=== PATIENT | female | born 1940 | race Caucasian/White ===

== ENCOUNTER 2017-01-02 12:44 | Emergency (ER) | payer MEDICARE, OTHER ==
[~2017-01-02] VITALS: Ht 160 cm; Wt 59.0 kg
[~2017-01-02 12:44] MED LIST: CALC-507 PO; CALC0.25 PO; CLOP75TA PO; DONE10TA34 PO; LISI-334 PO; MULT1TAB52 PO; MULT1TAB6 PO; OXYC5TAB PO; PANT40TA5 PO; PARO10TA2 PO; QUET25TA5 PO; SIMV20TA3 PO; [UNRECOGNIZED DRUG - CODE]
--- NOTE | 2017-01-02 13:24 | PHYS DOC ---
Past Medical History Past Medical History: Arthritis, Cancer, Dementia, Depression, GERD, Hypertension, TIA, Other Additional Past Medical Histor: TIA's(balance problems since), multiple falls - joint and bone pain, Lung C Past Surgical History: Appendectomy, Cholecystectomy, Hysterectomy, Other Additional Past Surgical Histo: shoulder, Brain tumor Alcohol Use: None Drug Use: None Adult General Chief Complaint Chief Complaint: BACK PAIN - NO INJURY HPI HPI 76-year-old female who had an episode of low back pain and vomiting that was noted this morning. EMS upon arrival states the patient had no pain and was not actively vomiting. Currently the patient denies any significant complaints. She states her symptoms have fully resolved. She denies any recent illnesses. She denies any chest pain for his breath. She denies any abdominal pain. Patient is fully alert and oriented and at her stated baseline per her at bedside. She appears in no acute distress. Pt at bedside does states she's had some mild bleeding with her stool but has significant rectal plain and she states she had a bowel movement earlier today that had hard stool but denied any blood. Review of Systems Review of Systems Constitutional: Denies fever or chills [] Eyes: Denies change in visual acuity, redness, or eye pain [] HENT: Denies nasal congestion or sore throat [] Respiratory: Denies cough or shortness of breath [] Cardiovascular: No additional information not addressed in HPI [] GI: Denies abdominal pain, nausea, vomiting, bloody stools or diarrhea [] : Denies dysuria or hematuria [] Musculoskeletal: Denies back pain or joint pain [] Integument: Denies rash or skin lesions [] Neurologic: Denies headache, focal weakness or sensory changes [] Endocrine: Denies polyuria or polydipsia [] Allergies Allergies Allergies Coded Allergies Type Severity Reaction Last Updated Verified No Known Drug Allergies 07/20/14 No Physical Exam Physical Exam Constitutional: Well developed, well nourished, no acute distress, non-toxic appearance. [] HENT: Normocephalic, atraumatic, bilateral external ears normal, oropharynx moist, no oral exudates, nose normal. [] Eyes: PERRLA, EOMI, conjunctiva normal, no discharge. [] Neck: Normal range of motion, no tenderness, supple, no stridor. [] Cardiovascular:Heart rate regular rhythm, no murmur [] Lungs & Thorax: Bilateral breath sounds clear to auscultation [] Abdomen: Bowel sounds normal, soft, no tenderness, no masses, no pulsatile masses. [] Skin: Warm, dry, no erythema, no rash. [] Back: No tenderness, no CVA tenderness. [] Extremities: No tenderness, no cyanosis, no clubbing, ROM intact, no edema. [] Neurologic: Alert and oriented X 3, normal motor function, normal sensory function, no focal deficits noted. [] Psychologic: Affect normal, judgement normal, mood normal. [] Current Patient Data Vital Signs Vital Signs Date Time Temp Pulse Resp B/P Pulse Ox O2 Delivery O2 Flow Rate FiO2 01/02/17 16:00 98.0 80 20 159/74 98 98.0 01/02/17 13:05 Room Air Lab Values Laboratory Tests Test 01/02/17 13:00 01/02/17 13:25 White Blood Count 12.4x10^3/uL (4.0-11.0) H Red Blood Count 5.03x10^6/uL (3.50-5.40) Hemoglobin 12.8g/dL (12.0-15.5) Hematocrit 40.6% (36.0-47.0) Mean Corpuscular Volume 81fL (79-100) Mean Corpuscular Hemoglobin 26pg (25-35) Mean Corpuscular Hemoglobin Concent 32g/dL (31-37) Red Cell Distribution Width 15.5% (11.5-14.5) H Platelet Count 316x10^3/uL (140-400) Neutrophils (%) (Auto) 83% (31-73) H Lymphocytes (%) (Auto) 10% (24-48) L Monocytes (%) (Auto) 5% (0-9) Eosinophils (%) (Auto) 2% (0-3) Basophils (%) (Auto) 1% (0-3) Neutrophils # (Auto) 10.3x10^3uL (1.8-7.7) H Lymphocytes # (Auto) 1.2x10^3/uL (1.0-4.8) Monocytes # (Auto) 0.6x10^3/uL (0.0-1.1) Eosinophils # (Auto) 0.2x10^3/uL (0.0-0.7) Basophils # (Auto) 0.1x10^3/uL (0.0-0.2) Sodium Level 146mmol/L (136-145) H Potassium Level 3.9mmol/L (3.5-5.1) Chloride Level 108mmol/L (98-107) H Carbon Dioxide Level 28mmol/L (21-32) Anion Gap 10 (6-14) Blood Urea Nitrogen 26mg/dL (7-20) H Creatinine 0.8mg/dL (0.6-1.0) Estimated GFR (Cockcroft-Gault) 69.4 Glucose Level 109mg/dL (70-99) H Calcium Level 9.3mg/dL (8.5-10.1) Troponin I Quantitative < 0.017ng/mL (0.000-0.055) Lipase 292U/L (73-393) Urine Collection Type U cath Urine Color Yellow Urine Clarity Cloudy Urine pH 6.0 Urine Specific [place] 1.020 Urine Protein Negativemg/dL (NEG-TRACE) Urine Glucose (UA) Negativemg/dL (NEG) Urine Ketones (Stick) Negativemg/dL (NEG) Urine Blood Trace (NEG) Urine Nitrite Positive (NEG) Urine Bilirubin Negative (NEG) Urine Urobilinogen Dipstick 0.2mg/dL (0.2 mg/dL) Urine Leukocyte Esterase Large (NEG) Urine RBC Occ/HPF (0-2) Urine WBC >40/HPF (0-4) Urine Squamous Epithelial Cells Few/LPF Urine Bacteria Many/HPF (0-FEW) Urine Mucus Mod/LPF Laboratory Tests 01/02/17 13:00 Laboratory Tests 01/02/17 13:00 EKG EKG EKG as interpreted by me reveals a sinus rhythm of 77 bpm with no obvious signs of ischemia seen. Radiology/Procedures Radiology/Procedures CT of the abdomen pelvis without contrast demonstrates the following: Indication abdominal pain. Axial images through the abdomen and pelvis were obtained. Imaging is limited. No IV or gastrointestinal contrast was administered. Additionally the patient was unable to remove the arms out of the [id number]. Note is made of a previous examination 08/15/2016. There are some chronic pleural-parenchymal changes at the lung bases. Operative intervention associated with both hips is noted. A mass or definite abnormality is not seen associated with the liver or spleen. No pancreatic abnormality is seen. The left kidney is slightly small. There is a small right renal calculus. An acute finding is not seen associated with the kidneys. The adrenal glands appear normal. There is some mild dilatation of the abdominal aorta. Maximum AP dimension is under, however, 2.5 cm. Acute finding in the abdomen is not seen. No mass or acute finding is apparent in the pelvis. Degenerative changes are noted in the lumbar spine. There is probable bony demineralization. One view of the chest as interpreted by me did not reveal an acute cardiopulmonary process. Course & Med Decision Making Course & Med Decision Making Pertinent Labs and Imaging studies reviewed. (See chart for details) This 76-year-old female with an episode of low back pain has fully resolved will obtain lab work and a CT noncontrasted of her abdomen and pelvis. Patient is in no acute distress at this time. EKG and chest x-ray are unremarkable. The patient's laboratory workup was unremarkable except for evidence of an ongoing urinary tract infection. Her imaging was negative for any acute abnormality. Patient was observed in the department for several hours and had no return of her symptoms. I'll be discharging of a course of antibiotics for her urinary tract infection and she'll follow closely with her family physician next several days for symptom resolution. Dragon Disclaimer Dragon Disclaimer This electronic medical record was generated, in whole or in part, using a voice recognition dictation system. Departure Departure Impression: Primary Impression: Urinary tract infection Disposition: HOME, SELF-CARE Admitting Physician: Other Condition: STABLE Referrals: CRYSTAL PRITCHARD MD (PCP) Patient Instructions: Urinary Tract Infection, [id number] Additional Instructions: Please take your medications as prescribed. Follow up with your primary care doctor in the next 2-3 days for your urinary symptoms. Return to the ER if you develop any worsening of your symptoms. Scripts Nitrofurantoin Monohyd/M-Cryst (Macrobid 100 Mg Capsule)100 Mg Capsule1 Cap PO BID #10 CAP Prov:ANGELIQUE WESLEY DO 01/02/17 ANGELIQUE WESLEY DO Jan 02, 2017 13:24
[2017-01-02 13:35] LABS: BASO # 0.1 x10^3/uL (0.0-0.2); BASO % 1 % (0-3); EOS % 2 % (0-3); HEMATOCRIT 40.6 % (36.0-47.0); HEMOGLOBIN 12.8 g/dL (12.0-15.5); LYMPH # 1.2 x10^3/uL (1.0-4.8); LYMPH % 10 % (24-48); MEAN CORPUSCULAR HEMOGLOBIN 26 pg (25-35); MEAN CORPUSCULAR HGB CONC 32 g/dL (31-37); MEAN CORPUSCULAR VOLUME 81 fL (79-100); MONO % 5 % (0-9); NEUT % 83 % (31-73); PLATELET COUNT 316 x10^3/uL (140-400); RED BLOOD COUNT 5.03 x10^6/uL (3.50-5.40); RED CELL DISTRIBUTION WIDTH 15.5 % (11.5-14.5); WHITE BLOOD COUNT 12.4 x10^3/uL (4.0-11.0)
[2017-01-02 13:39] LABS: CALCIUM 9.3 mg/dL (8.5-10.1); CREATININE 0.8 mg/dL (0.6-1.0); GFR 69.4; POTASSIUM 3.9 mmol/L (3.5-5.1)
[2017-01-02 13:52] LABS: BILIRUBIN,URINE NEGATIVE (NEG); GLUCOSE,URINE NEGATIVE (NEG); NITRITE,URINE POSITIVE (NEG); PROTEIN,URINE NEGATIVE (NEG-TRACE); UROBILINOGEN,URINE 0.2 mg/dL (0.2 mg/dL)
[2017-01-02 13:59] LABS: BACTERIA,URINE MANY /HPF (0-FEW); RBC,URINE OCC /HPF (0-2); SQUAMOUS EPITHELIAL CELL,UR FEW /LPF; WBC,URINE >40 /HPF (0-4)
--- NOTE | 2017-01-02 14:18 | RAD ---
Indication chronic cough. A single view of the chest was obtained. Comparison is made to an examination 08/15/2016. Heart and pulmonary vessels are unchanged. There is no focal infiltrate. Chronic findings are seen associated with the right and left humerus. Kyphoplasty changes are noted in the mid thoracic spine. A significant change in the chest is not seen. IMPRESSION: No acute or focal process. No significant change
--- NOTE | 2017-01-02 15:20 | RAD ---
Indication abdominal pain. Axial images through the abdomen and pelvis were obtained. Imaging is limited. No IV or gastrointestinal contrast was administered. Additionally the patient was unable to remove the arms out of the [id number]. Note is made of a previous examination 08/15/2016. There are some chronic pleural-parenchymal changes at the lung bases. Operative intervention associated with both hips is noted. A mass or definite abnormality is not seen associated with the liver or spleen. No pancreatic abnormality is seen. The left kidney is slightly small. There is a small right renal calculus. An acute finding is not seen associated with the kidneys. The adrenal glands appear normal. There is some mild dilatation of the abdominal aorta. Maximum AP dimension is under, however, 2.5 cm. Acute finding in the abdomen is not seen. No mass or acute finding is apparent in the pelvis. Degenerative changes are noted in the lumbar spine. There is probable bony demineralization. IMPRESSION: No acute finding seen in the abdomen or pelvis PQRS Compliance Statement: One or more of the following individualized dose reduction techniques were utilized for this examination: 1. Automated exposure control 2. Adjustment of the mA and/or kV according to patient size 3. Use of iterative reconstruction technique
[2017-01-02] MEDS ORDERED: NITR100C62 PO (15:39)
[2017-01-02 16:00] VITALS: BP 159/74
--- NOTE | 2017-01-03 06:43 | EKG ---
[facility] [address] [place] [address] Test Date: 2017-01-02 Test Time: 13:26:17 Pat Name: YIFAN DOMINIQUE Department: Room: Gender: F [employer] Overseer: : 1940 Requested By: ANGELIQUE WESLEY Order Number: [id number] Reading MD: Measurements Intervals [place] Rate: 77 P: 22 AL: 170 QRS: -24 QRSD: 70 T: -9 QT: 410 QTc: 466 Interpretive Statements SINUS RHYTHM LEFTWARD AXIS R-S TRANSITION ZONE IN V LEADS DISPLACED TO THE LEFT QRS(T) CONTOUR ABNORMALITY CONSIDER ANTEROSEPTAL MYOCARDIAL DAMAGE RI6.01 Unconfirmed report No previous ECG available for comparison
== END 2017-01-02 16:21 | disposition home or self-care (01) ==
LOC: ER 12:44
DX: N39.0 Urinary tract infection, site not specified (principal); F03.90 Unspecified dementia, unspecified severity, without behavioral disturbance, psychotic disturbance, mood disturbance, and anxiety; I10 Essential (primary) hypertension; K21.9 Gastro-esophageal reflux disease without esophagitis; M19.90 Unspecified osteoarthritis, unspecified site; Z86.73 Personal history of transient ischemic attack (TIA), and cerebral infarction without residual deficits; Z90.49 Acquired absence of other specified parts of digestive tract; Z90.710 Acquired absence of both cervix and uterus
CPT/HCPCS: 36415; 71010; 74176; 80048; 81001; 83690; 84484; 85027; 87086; 93005; 99285-25

== ENCOUNTER 2017-01-26 16:32 | Inpatient (IN) | payer MEDICARE ==
[~2017-01-26] VITALS: Ht 157.5 cm; Wt 54.2 kg
[~2017-01-26 16:32] MED LIST changes: +NITR100C62 PO; -PARO10TA2 PO; +PARO10TA3 PO
[2017-01-26 17:44] LABS: BASO % 0 % (0-3); EOS % 0 % (0-3); HEMATOCRIT 46.6 % (36.0-47.0); HEMOGLOBIN 15.2 g/dL (12.0-15.5); LYMPH # 0.3 x10^3/uL (1.0-4.8); LYMPH % 3 % (24-48); MEAN CORPUSCULAR HEMOGLOBIN 26 pg (25-35); MEAN CORPUSCULAR HGB CONC 33 g/dL (31-37); MEAN CORPUSCULAR VOLUME 80 fL (79-100); MONO % 8 % (0-9); NEUT % 88 % (31-73); PLATELET COUNT 275 x10^3/uL (140-400); WHITE BLOOD COUNT 8.4 x10^3/uL (4.0-11.0)
[2017-01-26 17:45] LABS: BILIRUBIN,URINE SMALL (NEG); GLUCOSE,URINE NEGATIVE (NEG); NITRITE,URINE NEGATIVE (NEG); PROTEIN,URINE NEGATIVE (NEG-TRACE)
[2017-01-26 17:55] LABS: BACTERIA,URINE 0 /HPF (0-FEW); SQUAMOUS EPITHELIAL CELL,UR FEW /LPF; WBC,URINE OCC /HPF (0-4)
[2017-01-26 18:07] LABS: CALCIUM 9.2 mg/dL (8.5-10.1); CREATININE 0.9 mg/dL (0.6-1.0); GFR 60.6; POTASSIUM 4.4 mmol/L (3.5-5.1)
[2017-01-26 18:10] LABS: ALBUMIN 3.8 g/dL (3.4-5.0); ALBUMIN/GLOBULIN RATIO 0.9 (1.0-1.7); TOTAL BILIRUBIN 0.5 mg/dL (0.2-1.0); TOTAL PROTEIN 8.2 g/dL (6.4-8.2)
[2017-01-26 18:15] LABS: PLT ESTIMATE ADEQUATE (ADEQUATE)
--- NOTE | 2017-01-26 18:33 | PHYS DOC ---
Past Medical History Past Medical History: Arthritis, Cancer, Dementia, Depression, GERD, Hypertension, TIA, Other Additional Past Medical Histor: TIA's(balance problems since), multiple falls - joint and bone pain, Lung C Past Surgical History: Appendectomy, Cholecystectomy, Hysterectomy, Other Additional Past Surgical Histo: shoulder, Brain tumor Alcohol Use: None Drug Use: None Adult General Chief Complaint Chief Complaint: ALTERED MENTAL STATUS HPI HPI 76-year-old female with multiple medical problems including dementia presents with her secondary to altered mental status today. Apparently, she recently was seen in for the same type of issue and had a urinary tract infection. According to the patient has had no complaints of headache and no obvious lateralizing neurologic findings. states that on arrival to the emergency department she seems to have come back to normal. [] Review of Systems Review of Systems Review of systems is unobtainable secondary to dementia Allergies Allergies Allergies Coded Allergies Type Severity Reaction Last Updated Verified No Known Drug Allergies 07/20/14 No Physical Exam Physical Exam Constitutional: Well developed, well nourished, no acute distress, non-toxic appearance. [] HENT: Normocephalic, atraumatic, bilateral external ears normal, oropharynx moist, no oral exudates, nose normal. [] Eyes: PERRLA, EOMI, conjunctiva normal, no discharge. [] Neck: Normal range of motion, no tenderness, supple, no stridor. [] Cardiovascular:Heart rate regular rhythm, no murmur [] Lungs & Thorax: Bilateral breath sounds clear to auscultation [] Abdomen: Bowel sounds normal, soft, no tenderness, no masses, no pulsatile masses. [] Skin: Warm, dry, no erythema, no rash. [] Back: No tenderness, no CVA tenderness. [] Extremities: No tenderness, no cyanosis, no clubbing, ROM intact, no edema. [] Neurologic: Alert and oriented X 3, normal motor function, normal sensory function, no focal deficits noted. [] Psychologic: Unable to assess secondary to dementia [] Current Patient Data Vital Signs Vital Signs Date Time Temp Pulse Resp B/P Pulse Ox O2 Delivery O2 Flow Rate FiO2 01/26/17 16:39 98.7 78 20 180/70 98 Room Air 98.7 Lab Values Laboratory Tests Test 01/26/17 17:15 01/26/17 17:30 Urine Collection Type Unknown Urine Color Yellow Urine Clarity Clear Urine pH 6.0 Urine Specific [place] 1.020 Urine Protein Negativemg/dL (NEG-TRACE) Urine Glucose (UA) Negativemg/dL (NEG) Urine Ketones (Stick) 40mg/dL (NEG) Urine Blood Small (NEG) Urine Nitrite Negative (NEG) Urine Bilirubin Small (NEG) Urine Urobilinogen Dipstick 1.0mg/dL (0.2 mg/dL) Urine Leukocyte Esterase Negative (NEG) Urine RBC 1-2/HPF (0-2) Urine WBC Occ/HPF (0-4) Urine Squamous Epithelial Cells Few/LPF Urine Bacteria 0/HPF (0-FEW) Urine Mucus Mod/LPF White Blood Count 8.4x10^3/uL (4.0-11.0) Red Blood Count 5.80x10^6/uL (3.50-5.40) H Hemoglobin 15.2g/dL (12.0-15.5) Hematocrit 46.6% (36.0-47.0) Mean Corpuscular Volume 80fL (79-100) Mean Corpuscular Hemoglobin 26pg (25-35) Mean Corpuscular Hemoglobin Concent 33g/dL (31-37) Red Cell Distribution Width 15.0% (11.5-14.5) H Platelet Count 275x10^3/uL (140-400) Neutrophils (%) (Auto) 88% (31-73) H Lymphocytes (%) (Auto) 3% (24-48) L Monocytes (%) (Auto) 8% (0-9) Eosinophils (%) (Auto) 0% (0-3) Basophils (%) (Auto) 0% (0-3) Neutrophils # (Auto) 7.5x10^3uL (1.8-7.7) Lymphocytes # (Auto) 0.3x10^3/uL (1.0-4.8) L Monocytes # (Auto) 0.7x10^3/uL (0.0-1.1) Eosinophils # (Auto) 0.0x10^3/uL (0.0-0.7) Basophils # (Auto) 0.0x10^3/uL (0.0-0.2) Segmented Neutrophils % 91% (35-66) H Band Neutrophils % 4% (0-9) Lymphocytes % 2% (24-48) L Monocytes % 3% (0-10) Platelet Estimate Adequate (ADEQUATE) Sodium Level 143mmol/L (136-145) Potassium Level 4.4mmol/L (3.5-5.1) Chloride Level 107mmol/L (98-107) Carbon Dioxide Level 21mmol/L (21-32) Anion Gap 15 (6-14) H Blood Urea Nitrogen 17mg/dL (7-20) Creatinine 0.9mg/dL (0.6-1.0) Estimated GFR (Cockcroft-Gault) 60.6 BUN/Creatinine Ratio 19 (6-20) Glucose Level 113mg/dL (70-99) H Calcium Level 9.2mg/dL (8.5-10.1) Total Bilirubin 0.5mg/dL (0.2-1.0) Aspartate Amino Transferase (AST) 35U/L (15-37) Alanine Aminotransferase (ALT) 46U/L (14-59) Alkaline Phosphatase 103U/L (46-116) Troponin I Quantitative < 0.017ng/mL (0.000-0.055) Total Protein 8.2g/dL (6.4-8.2) Albumin 3.8g/dL (3.4-5.0) Albumin/Globulin Ratio 0.9 (1.0-1.7) L Laboratory Tests 01/26/17 17:30 Laboratory Tests 01/26/17 17:30 EKG EKG [] Radiology/Procedures Radiology/Procedures [] Course & Med Decision Making Course & Med Decision Making Pertinent Labs and Imaging studies reviewed. (See chart for details) [ED course: Evaluation reveals a 76-year-old demented female in no significant distress. According to she is return to an maintained baseline mental status since she's arrived here. Her urine does not appear abnormal. At this point I think is safe for her to go home.] Dragon Disclaimer Dragon Disclaimer This electronic medical record was generated, in whole or in part, using a voice recognition dictation system. Departure Departure Impression: Primary Impression: Altered mental status Disposition: HOME, SELF-CARE Condition: STABLE Referrals: CRYSTAL PRITCHARD MD (PCP) Patient Instructions: Altered Mental Status Additional Instructions: Follow with your family doctor this week for recheck. Return to the MRSA part with any new or concerning symptoms Problem Qualifiers Primary Impression: Altered mental status Altered mental status type: unspecified Qualified Code: R41.82 - Altered mental status, unspecified DEANDRE SHI DO Jan 26, 2017 18:33
[2017-01-26] MEDS ORDERED: ONDANSETRON PF 4 MG/2 ML VIAL. IV PRN ×2 (19:00→19:30)
[2017-01-26] MEDS: IV NORMAL SALINE 1000ML BAG 1,000 ML IV SCH ×2 (19:00→20:20)
--- NOTE | 2017-01-26 19:27 | PDOC1 ---
History and Physical Past Medical History Past Medical History PAST MEDICAL HISTORY Cardiovascular: CAD (with high risk PCI/DEBORAH to left main and LAD; BMS to RCA using Impella device on 07/25/2014), HTN, MO (NSEI - 07/2014), Hyperlipidemia Pulmonary: No pertinent hx CENTRAL NERVOUS SYSTEM: TIA (multiple), Other (brain tumor with previous craniotomy) GI: GERD Heme/Onc: No pertinent hx Hepatobiliary: No pertinent hx Psych: Depression Musculoskeletal: Osteoarthritis Rheumatologic: No pertinent hx Infectious disease: No pertinent hx ENT: No pertinent hx Renal/: No pertinent hx Endocrine: No pertinent hx Dermatology: No pertinent hx PAST SURGICAL HISTORY Past Surgical History: Appendectomy, Other (craniotomy) FAMILY HISTORY Family History: Family History Unknown SOCIAL HISTORY ALCOHOL: rare Drugs: None Lives: with Family Cardiovascular: CAD, HTN, MO, Hyperlipidemia Pulmonary: No pertinent hx CENTRAL NERVOUS SYSTEM: TIA, Other GI: GERD Heme/Onc: No pertinent hx Hepatobiliary: No pertinent hx Psych: Depression Rheumatologic: No pertinent hx Infectious disease: No pertinent hx Renal/: No pertinent hx Endocrine: No pertinent hx Past Surgical History Past Surgical History: Appendectomy, Other Family History Family History: Family History Unknown Social History ALCOHOL: rare Drugs: None Current Problem List Problem List Problems Medical Problems: (1) Altered mental status Status: Acute Current Medications Current Medications Current Medications Medications (Trade) Dose Ordered Sig/Jose Start Time Stop Time Status Last Admin Dose Admin Ondansetron HCl 4 mg 4 mg PRN Q8HRS PRN 01/26/17 19:00 01/27/17 18:59 Sodium Chloride (Iv Sodium Chloride 0.9% 1000ml Bag) 1,000 ml @ 75 mls/hr [id number] 01/26/17 19:30 Allergies Allergies Allergies Coded Allergies Type Severity Reaction Last Updated Verified No Known Drug Allergies 07/20/14 No ROS Review of System NOT ABLE TO OBTAIN DUE TO ACUITY OF HER CONDITION Physical Exam Physical Exam GEN.: apparent distress. Alert, Severely dehydrated. thin built HEENT: Head is normocephalic, atraumatic NECK: Supple. LUNGS: Clear to auscultation. normal airflow HEART: RRR, S1, S2 present. Peripheral pulses intact ABDOMEN: Soft, nontender. Positive bowel sounds. EXTREMITIES: Without any cyanosis. NEUROLOGIC: alert, but not answering questions, worsening baseline status per PSYCHIATRIC: Vitals Vitals Vital Signs Date Time Temp Pulse Resp B/P Pulse Ox O2 Delivery O2 Flow Rate FiO2 01/26/17 18:03 90 18 143/87 97 01/26/17 16:39 98.7 Room Air 98.7 Labs Labs Laboratory Tests Test 01/26/17 17:15 01/26/17 17:30 Urine Collection Type Unknown Urine Color Yellow Urine Clarity Clear Urine pH 6.0 Urine Specific [place] 1.020 Urine Protein Negativemg/dL (NEG-TRACE) Urine Glucose (UA) Negativemg/dL (NEG) Urine Ketones (Stick) 40mg/dL (NEG) Urine Blood Small (NEG) Urine Nitrite Negative (NEG) Urine Bilirubin Small (NEG) Urine Urobilinogen Dipstick 1.0mg/dL (0.2 mg/dL) Urine Leukocyte Esterase Negative (NEG) Urine RBC 1-2/HPF (0-2) Urine WBC Occ/HPF (0-4) Urine Squamous Epithelial Cells Few/LPF Urine Bacteria 0/HPF (0-FEW) Urine Mucus Mod/LPF White Blood Count 8.4x10^3/uL (4.0-11.0) Red Blood Count 5.80x10^6/uL (3.50-5.40) Hemoglobin 15.2g/dL (12.0-15.5) Hematocrit 46.6% (36.0-47.0) Mean Corpuscular Volume 80fL (79-100) Mean Corpuscular Hemoglobin 26pg (25-35) Mean Corpuscular Hemoglobin Concent 33g/dL (31-37) Red Cell Distribution Width 15.0% (11.5-14.5) Platelet Count 275x10^3/uL (140-400) Neutrophils (%) (Auto) 88% (31-73) Lymphocytes (%) (Auto) 3% (24-48) Monocytes (%) (Auto) 8% (0-9) Eosinophils (%) (Auto) 0% (0-3) Basophils (%) (Auto) 0% (0-3) Neutrophils # (Auto) 7.5x10^3uL (1.8-7.7) Lymphocytes # (Auto) 0.3x10^3/uL (1.0-4.8) Monocytes # (Auto) 0.7x10^3/uL (0.0-1.1) Eosinophils # (Auto) 0.0x10^3/uL (0.0-0.7) Basophils # (Auto) 0.0x10^3/uL (0.0-0.2) Segmented Neutrophils % 91% (35-66) Band Neutrophils % 4% (0-9) Lymphocytes % 2% (24-48) Monocytes % 3% (0-10) Platelet Estimate Adequate (ADEQUATE) Sodium Level 143mmol/L (136-145) Potassium Level 4.4mmol/L (3.5-5.1) Chloride Level 107mmol/L (98-107) Carbon Dioxide Level 21mmol/L (21-32) Anion Gap 15 (6-14) Blood Urea Nitrogen 17mg/dL (7-20) Creatinine 0.9mg/dL (0.6-1.0) Estimated GFR (Cockcroft-Gault) 60.6 BUN/Creatinine Ratio 19 (6-20) Glucose Level 113mg/dL (70-99) Calcium Level 9.2mg/dL (8.5-10.1) Total Bilirubin 0.5mg/dL (0.2-1.0) Aspartate Amino Transf (AST/SGOT) 35U/L (15-37) Alanine Aminotransferase (ALT/SGPT) 46U/L (14-59) Alkaline Phosphatase 103U/L (46-116) Troponin I Quantitative < 0.017ng/mL (0.000-0.055) Total Protein 8.2g/dL (6.4-8.2) Albumin 3.8g/dL (3.4-5.0) Albumin/Globulin Ratio 0.9 (1.0-1.7) Laboratory Tests Test 01/26/17 17:15 01/26/17 17:30 Urine Collection Type Unknown Urine Color Yellow Urine Clarity Clear Urine pH 6.0 Urine Specific [place] 1.020 Urine Protein Negativemg/dL (NEG-TRACE) Urine Glucose (UA) Negativemg/dL (NEG) Urine Ketones (Stick) 40mg/dL (NEG) Urine Blood Small (NEG) Urine Nitrite Negative (NEG) Urine Bilirubin Small (NEG) Urine Urobilinogen Dipstick 1.0mg/dL (0.2 mg/dL) Urine Leukocyte Esterase Negative (NEG) Urine RBC 1-2/HPF (0-2) Urine WBC Occ/HPF (0-4) Urine Squamous Epithelial Cells Few/LPF Urine Bacteria 0/HPF (0-FEW) Urine Mucus Mod/LPF White Blood Count 8.4x10^3/uL (4.0-11.0) Red Blood Count 5.80x10^6/uL (3.50-5.40) Hemoglobin 15.2g/dL (12.0-15.5) Hematocrit 46.6% (36.0-47.0) Mean Corpuscular Volume 80fL (79-100) Mean Corpuscular Hemoglobin 26pg (25-35) Mean Corpuscular Hemoglobin Concent 33g/dL (31-37) Red Cell Distribution Width 15.0% (11.5-14.5) Platelet Count 275x10^3/uL (140-400) Neutrophils (%) (Auto) 88% (31-73) Lymphocytes (%) (Auto) 3% (24-48) Monocytes (%) (Auto) 8% (0-9) Eosinophils (%) (Auto) 0% (0-3) Basophils (%) (Auto) 0% (0-3) Neutrophils # (Auto) 7.5x10^3uL (1.8-7.7) Lymphocytes # (Auto) 0.3x10^3/uL (1.0-4.8) Monocytes # (Auto) 0.7x10^3/uL (0.0-1.1) Eosinophils # (Auto) 0.0x10^3/uL (0.0-0.7) Basophils # (Auto) 0.0x10^3/uL (0.0-0.2) Segmented Neutrophils % 91% (35-66) Band Neutrophils % 4% (0-9) Lymphocytes % 2% (24-48) Monocytes % 3% (0-10) Platelet Estimate Adequate (ADEQUATE) Sodium Level 143mmol/L (136-145) Potassium Level 4.4mmol/L (3.5-5.1) Chloride Level 107mmol/L (98-107) Carbon Dioxide Level 21mmol/L (21-32) Anion Gap 15 (6-14) Blood Urea Nitrogen 17mg/dL (7-20) Creatinine 0.9mg/dL (0.6-1.0) Estimated GFR (Cockcroft-Gault) 60.6 BUN/Creatinine Ratio 19 (6-20) Glucose Level 113mg/dL (70-99) Calcium Level 9.2mg/dL (8.5-10.1) Total Bilirubin 0.5mg/dL (0.2-1.0) Aspartate Amino Transf (AST/SGOT) 35U/L (15-37) Alanine Aminotransferase (ALT/SGPT) 46U/L (14-59) Alkaline Phosphatase 103U/L (46-116) Troponin I Quantitative < 0.017ng/mL (0.000-0.055) Total Protein 8.2g/dL (6.4-8.2) Albumin 3.8g/dL (3.4-5.0) Albumin/Globulin Ratio 0.9 (1.0-1.7) VTE Prophylaxis Ordered VTE Prophylaxis Devices: Yes VTE Pharmacological Prophylaxi: No TRISH ABEBE MD Jan 26, 2017 19:27
[2017-01-26] MEDS ORDERED: ALBUTEROL SULFATE 2.5 MG/3 ML NEBU. NEB PRN (19:30)
[2017-01-26] MEDS ORDERED: hydrALAZINE 20 MG/ML VIAL. IVP PRN (19:30)
[2017-01-26] MEDS ORDERED: HYDROCODONE/APAP 5/325MG TABLET. PO PRN (19:30)
[2017-01-26] MEDS ORDERED: ACETAMINOPHEN 325 MG TABLET. PO PRN (19:30)
[2017-01-26 21:35] VITALS: BP 128/78
--- NOTE | 2017-01-26 21:41 | RAD ---
PROCEDURE CT head without intravenous contrast. HISTORY Altered mental status. TECHNIQUE Axial images are obtained of the head from the skull base through the vertex without IV contrast Exposure: One or more of the following individualized dose reduction techniques were utilized for this examination: 1. Automated exposure control. 2. Adjustment of the mA and/or kV according to patient size. 3. Use of iterative reconstruction technique. COMPARISON CT head August 16, 2016. FINDINGS Right frontoparietal craniotomy changes are again seen. Area of volume loss involving the right frontal lobe is similar to previous study. 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 Advanced, nonspecific white matter low attenuation is seen, probably from chronic microvascular ischemic disease. The ventricles are appropriate in size, shape, and location for the patient's age.No obvious intracranial mass, mass-effect, midline shift, hemorrhage or obvious acute infarction is identified.Basilar cisterns are patent. Right globe is unchanged, appearing hyperdense with areas calcification. Bone windows demonstrate no acute calvarial abnormality.The visualized paranasal sinuses appear clear. IMPRESSION 1. No acute intracranial process. Please note that CT can be relatively insensitive to acute ischemic infarction for up to 24 hours after symptom onset. 2. Chronic changes. Electronically signed by: Jeff Collado MD (Jan 26, 2017 21:40:12)
[2017-01-26 23:53] VITALS: BP 131/71
--- NOTE | 2017-01-27 00:36 | HP ---
ADMIT DATE: 01/26/2017 CHIEF COMPLAINT: Altered mental status. HISTORY OF PRESENT ILLNESS: A 76-year-old female patient with prior history of dementia and several comorbid conditions. She was brought to the hospital by . Reportedly, she has not been eating for the last couple of days and getting slowly worsening mental status. As per the , the patient's baseline status is not this. She is completely confused and not able to answer questions. She is alert, not able to provide any history, moving all over the bed. She appears to be very dehydrated. The patient was admitted to the hospital in the past several times for altered mental status. At that time, she was diagnosed with urinary tract infections; also she had a history of dementia, which has been getting progressively worse. PAST MEDICAL HISTORY, REVIEW OF SYSTEMS, AND PHYSICAL EXAMINATION: Please see my electronic H and P. LABORATORY FINDINGS: WBC 8.4, hemoglobin is 15.2, MCV is 80, MCHC is 33, and platelets 275. Chemistry: Sodium 143, potassium 4.4, chloride is 107, gap is 15, BUN 17, creatinine 0.9. Troponin is less than 0.017. PT/INR within normal range. Urine protein negative, nitrites negative, leuk esterase negative. ASSESSMENT AND PLAN: 1. Severe dehydration. 2. Altered mental status, possible worsening dementia. 3. History of coronary artery disease. 4. Multiple fall history. 5. Physical inability. PLAN: 1. Admit the patient. 2. Started IV hydration 75 to 100 mL per hour. 3. Consult Neurology. 4. Monitor labs, CBC, BMP in a.m. 5. Physical therapy and occupational therapy. 6. Palliative care consult for discussion of goals of care. 7. Chest x-ray pending. 8. did not know medications at this time. We will need to wait for home medication list. 9. Neurology consultation. 10. Prognosis is guarded. TRISH ABEBE MD DR: DANIEL/becky JOB#: [id number] / [id number] KRISTIE
[2017-01-27] MEDS: IV NORMAL SALINE 1000ML BAG 1,000 ML IV SCH ×4 (03:00→22:10)
[2017-01-27 03:01] VITALS: BP 166/82
[2017-01-27 04:04] LABS: BASO % 0 % (0-3); EOS % 0 % (0-3); HEMATOCRIT 43.5 % (36.0-47.0); HEMOGLOBIN 13.9 g/dL (12.0-15.5); LYMPH # 0.4 x10^3/uL (1.0-4.8); LYMPH % 6 % (24-48); MEAN CORPUSCULAR HEMOGLOBIN 26 pg (25-35); MEAN CORPUSCULAR HGB CONC 32 g/dL (31-37); MEAN CORPUSCULAR VOLUME 82 fL (79-100); MONO % 13 % (0-9); NEUT % 81 % (31-73); PLATELET COUNT 225 x10^3/uL (140-400); RED BLOOD COUNT 5.31 x10^6/uL (3.50-5.40); WHITE BLOOD COUNT 6.6 x10^3/uL (4.0-11.0)
[2017-01-27 04:26] LABS: ALBUMIN 3.4 g/dL (3.4-5.0); CALCIUM 8.6 mg/dL (8.5-10.1); CREATININE 0.7 mg/dL (0.6-1.0); GFR 80.9; POTASSIUM 3.9 mmol/L (3.5-5.1); TOTAL BILIRUBIN 0.4 mg/dL (0.2-1.0); TOTAL PROTEIN 6.9 g/dL (6.4-8.2)
--- NOTE | 2017-01-27 04:52 | ACF ---
Admission Forms Criteria MENTAL STATUS CHANGE Clinical Indications for Inpatient Care (Place 'X' for any and all applicable criteria): Ongoing inpatient care may be needed for ANY ONE of the following(1)(2)(3)(5)(6) : [X]I. Suspected serious etiology (eg, medical disorder, USPS LETTER CARRIER event) of mental status change [ ]II. Danger to self or others not manageable at lower level of care [ ]III. Grave disability (eg, inability to perform self care necessary at lower level of care) [ ]IV. Agitation or inappropriate behavior interfering with care for primary condition (eg, attempting to discontinue lines or drains prematurely, unable to cooperate with respiratory care) [ ]V. Delirium [A] [D][E] as described by ANY ONE of the following(26): [ ]a) Delirium due to alcohol or sedative [F] withdrawal [ ]b) Delirium of uncertain etiology that has not responded to appropriate empiric treatment [ ]c) Delirium that prevents performance of a life-sustaining function (eg, feeding or hydrating oneself) [ ]. General contraindications and/or Inappropriate clinical situations for Observational Care in patients with Mental Status Change, when ANY ONE of the following is required: [ ]a) Prediction of prolongation of LOS based on ANY ONE of the following may be considered as a contraindication for observational care 2, 3, 4, 5, 6, 7, 8, 9, 10, 11 [ ]i) Age > 65 yrs. [ ]ii) Patient arriving by ambulance [ ]iii) Patient with high acuity [ ]iv) Patient requiring vital sign monitoring [ ]v) Patient on IV medication [ ]b) Systolic blood pressures 180mmHg 3,12 [ ]c) Patient with altered mental status including delirium and other alteration of consciousness, (3) [ ]d) Patient whose discharge disposition will be to a fdc home or rehabilitation home should not be managed in Emergency Department Observation Unit. CMS rule requires 3 days hospital stay before such placement.3,13 [ ]e) Patient with failure to thrive due to broad array of etiologies 3,16,17 [ ]f) Inability to ambulate 3,14 Extended stay beyond goal length of stay for the primary condition may be needed until ALL of the following are present(3)(5): [ ]a) Underlying medical etiology of mental status change is absent, or has been established and adequately treated [ ]b) Danger to self or others is absent or manageable at lower level of care. [ ]c) Behavior crisis management, including physical or chemical restraints, is not required or available at lower level of car [ ]d) Substance or alcohol withdrawal is absent or manageable at lower level of care. [ ]e) Behavioral symptoms (eg, agitation, somnolence, inappropriate behavior) are absent, or are manageable at lower level of care. The original [facility] content created by [facility] has been revised. The portions of the content which have been revised are identified through the use of italic text or in bold, and [facility] has neither reviewed nor approved the modified material. All other unmodified content is copyright [facility]. Please see references footnoted in the original [facility] edition 2016 Admission Criteria Met?: Yes GIANNI ROSADO Jan 27, 2017 04:51
--- NOTE | 2017-01-27 06:47 | EKG ---
[facility] [address] [place] [address] Test Date: 2017-01-26 Test Time: 16:54:00 Pat Name: YIFAN DOMINIQUE Department: Room: 672 1 Gender: Female Rn Ortho: : 1940 Requested By: DEANDRE SHI Order Number: [id number] Reading MD: Danette Bernard Measurements Intervals [employer] Rate: 109 P: 56 VA: 146 QRS: -5 QRSD: 108 T: -8 QT: 316 QTc: 427 Interpretive Statements SINUS TACHYCARDIA INCOMPLETE RIGHT BUNDLE BRANCH BLOCK T ABNORMALITY IN ANTERIOR LEADS INFERIOR LEADS Electronically Signed On 01-29-2017 19:53:30 CDT by Danette Bernard
[2017-01-27 07:00] VITALS: BP 160/94
--- NOTE | 2017-01-27 08:10 | RAD ---
Portable chest, 01/26/2017: History: Altered mental status Comparison is made to a study from 01/02/2017. The heart is at the upper limits of normal in size. There is calcific plaquing and tortuosity of the thoracic aorta. A coronary artery radiopacity overlying the left side of the heart probably represents a stent. The pulmonary vascularity is normal. No pulmonary infiltrates are seen. There is no evidence of pleural fluid. The bony structures are demineralized. Vertebroplasty change is noted in the lower thoracic spine. A right shoulder prosthesis is in place. There is an old, healed, internally fixed proximal left humeral fracture. Rib deformities on the left are probably postsurgical. IMPRESSION: 1. Aortic atherosclerosis. 2. Coronary artery disease. 3. No acute cardiopulmonary abnormality is detected.
--- NOTE | 2017-01-27 10:44 | PDOC ---
PROGRESS NOTES Chief Complaint Chief Complaint A/P 1. Severe dehydration. 2. Altered mental status, possible worsening dementia. 3. History of coronary artery disease. 4. Multiple fall history. 5. Physical inability. Plan PPN spoke with caretakers, this is not her baseline, dramatic shift in baseline status consult Neurology labs and images no source of infection, supportive care. Vitals Vitals Vital Signs Date Time Temp Pulse Resp B/P Pulse Ox O2 Delivery O2 Flow Rate FiO2 01/27/17 07:00 98.1 99 18 160/94 94 Room Air 98.1 Physical Exam General: Alert Heart: Normal S1, Normal S2 Lungs: Clear, Wheezing Abdomen: Normal bowel sounds, Soft Labs LABS Laboratory Tests Test 01/26/17 17:15 01/26/17 17:30 01/27/17 03:51 Urine Collection Type Unknown Urine Color Yellow Urine Clarity Clear Urine pH 6.0 Urine Specific Bromide 1.020 Urine Protein Negativemg/dL (NEG-TRACE) Urine Glucose (UA) Negativemg/dL (NEG) Urine Ketones (Stick) 40mg/dL (NEG) Urine Blood Small (NEG) Urine Nitrite Negative (NEG) Urine Bilirubin Small (NEG) Urine Urobilinogen Dipstick 1.0mg/dL (0.2 mg/dL) Urine Leukocyte Esterase Negative (NEG) Urine RBC 1-2/HPF (0-2) Urine WBC Occ/HPF (0-4) Urine Squamous Epithelial Cells Few/LPF Urine Bacteria 0/HPF (0-FEW) Urine Mucus Mod/LPF White Blood Count 8.4x10^3/uL (4.0-11.0) 6.6x10^3/uL (4.0-11.0) Red Blood Count 5.80x10^6/uL (3.50-5.40) 5.31x10^6/uL (3.50-5.40) Hemoglobin 15.2g/dL (12.0-15.5) 13.9g/dL (12.0-15.5) Hematocrit 46.6% (36.0-47.0) 43.5% (36.0-47.0) Mean Corpuscular Volume 80fL (79-100) 82fL (79-100) Mean Corpuscular Hemoglobin 26pg (25-35) 26pg (25-35) Mean Corpuscular Hemoglobin Concent 33g/dL (31-37) 32g/dL (31-37) Red Cell Distribution Width 15.0% (11.5-14.5) 15.0% (11.5-14.5) Platelet Count 275x10^3/uL (140-400) 225x10^3/uL (140-400) Neutrophils (%) (Auto) 88% (31-73) 81% (31-73) Lymphocytes (%) (Auto) 3% (24-48) 6% (24-48) Monocytes (%) (Auto) 8% (0-9) 13% (0-9) Eosinophils (%) (Auto) 0% (0-3) 0% (0-3) Basophils (%) (Auto) 0% (0-3) 0% (0-3) Neutrophils # (Auto) 7.5x10^3uL (1.8-7.7) 5.4x10^3uL (1.8-7.7) Lymphocytes # (Auto) 0.3x10^3/uL (1.0-4.8) 0.4x10^3/uL (1.0-4.8) Monocytes # (Auto) 0.7x10^3/uL (0.0-1.1) 0.8x10^3/uL (0.0-1.1) Eosinophils # (Auto) 0.0x10^3/uL (0.0-0.7) 0.0x10^3/uL (0.0-0.7) Basophils # (Auto) 0.0x10^3/uL (0.0-0.2) 0.0x10^3/uL (0.0-0.2) Segmented Neutrophils % 91% (35-66) Band Neutrophils % 4% (0-9) Lymphocytes % 2% (24-48) Monocytes % 3% (0-10) Platelet Estimate Adequate (ADEQUATE) Sodium Level 143mmol/L (136-145) 144mmol/L (136-145) Potassium Level 4.4mmol/L (3.5-5.1) 3.9mmol/L (3.5-5.1) Chloride Level 107mmol/L (98-107) 107mmol/L (98-107) Carbon Dioxide Level 21mmol/L (21-32) 22mmol/L (21-32) Anion Gap 15 (6-14) 15 (6-14) Blood Urea Nitrogen 17mg/dL (7-20) 19mg/dL (7-20) Creatinine 0.9mg/dL (0.6-1.0) 0.7mg/dL (0.6-1.0) Estimated GFR (Cockcroft-Gault) 60.6 80.9 BUN/Creatinine Ratio 19 (6-20) 27 (6-20) Glucose Level 113mg/dL (70-99) 94mg/dL (70-99) Calcium Level 9.2mg/dL (8.5-10.1) 8.6mg/dL (8.5-10.1) Total Bilirubin 0.5mg/dL (0.2-1.0) 0.4mg/dL (0.2-1.0) Aspartate Amino Transf (AST/SGOT) 35U/L (15-37) 34U/L (15-37) Alanine Aminotransferase (ALT/SGPT) 46U/L (14-59) 49U/L (14-59) Alkaline Phosphatase 103U/L (46-116) 91U/L (46-116) Troponin I Quantitative < 0.017ng/mL (0.000-0.055) Total Protein 8.2g/dL (6.4-8.2) 6.9g/dL (6.4-8.2) Albumin 3.8g/dL (3.4-5.0) 3.4g/dL (3.4-5.0) Albumin/Globulin Ratio 0.9 (1.0-1.7) 1.0 (1.0-1.7) Assessment and Plan Assessmemt and Plan Problems Medical Problems: (1) Altered mental status Status: Acute Problems: Comment Review of Relevant I have reviewed the following items vishnu (where applicable) has been applied. Labs Laboratory Tests Test 01/26/17 17:15 01/26/17 17:30 01/27/17 03:51 Urine Collection Type Unknown Urine Color Yellow Urine Clarity Clear Urine pH 6.0 Urine Specific Bromide 1.020 Urine Protein Negativemg/dL (NEG-TRACE) Urine Glucose (UA) Negativemg/dL (NEG) Urine Ketones (Stick) 40mg/dL (NEG) Urine Blood Small (NEG) Urine Nitrite Negative (NEG) Urine Bilirubin Small (NEG) Urine Urobilinogen Dipstick 1.0mg/dL (0.2 mg/dL) Urine Leukocyte Esterase Negative (NEG) Urine RBC 1-2/HPF (0-2) Urine WBC Occ/HPF (0-4) Urine Squamous Epithelial Cells Few/LPF Urine Bacteria 0/HPF (0-FEW) Urine Mucus Mod/LPF White Blood Count 8.4x10^3/uL (4.0-11.0) 6.6x10^3/uL (4.0-11.0) Red Blood Count 5.80x10^6/uL (3.50-5.40) 5.31x10^6/uL (3.50-5.40) Hemoglobin 15.2g/dL (12.0-15.5) 13.9g/dL (12.0-15.5) Hematocrit 46.6% (36.0-47.0) 43.5% (36.0-47.0) Mean Corpuscular Volume 80fL (79-100) 82fL (79-100) Mean Corpuscular Hemoglobin 26pg (25-35) 26pg (25-35) Mean Corpuscular Hemoglobin Concent 33g/dL (31-37) 32g/dL (31-37) Red Cell Distribution Width 15.0% (11.5-14.5) 15.0% (11.5-14.5) Platelet Count 275x10^3/uL (140-400) 225x10^3/uL (140-400) Neutrophils (%) (Auto) 88% (31-73) 81% (31-73) Lymphocytes (%) (Auto) 3% (24-48) 6% (24-48) Monocytes (%) (Auto) 8% (0-9) 13% (0-9) Eosinophils (%) (Auto) 0% (0-3) 0% (0-3) Basophils (%) (Auto) 0% (0-3) 0% (0-3) Neutrophils # (Auto) 7.5x10^3uL (1.8-7.7) 5.4x10^3uL (1.8-7.7) Lymphocytes # (Auto) 0.3x10^3/uL (1.0-4.8) 0.4x10^3/uL (1.0-4.8) Monocytes # (Auto) 0.7x10^3/uL (0.0-1.1) 0.8x10^3/uL (0.0-1.1) Eosinophils # (Auto) 0.0x10^3/uL (0.0-0.7) 0.0x10^3/uL (0.0-0.7) Basophils # (Auto) 0.0x10^3/uL (0.0-0.2) 0.0x10^3/uL (0.0-0.2) Segmented Neutrophils % 91% (35-66) Band Neutrophils % 4% (0-9) Lymphocytes % 2% (24-48) Monocytes % 3% (0-10) Platelet Estimate Adequate (ADEQUATE) Sodium Level 143mmol/L (136-145) 144mmol/L (136-145) Potassium Level 4.4mmol/L (3.5-5.1) 3.9mmol/L (3.5-5.1) Chloride Level 107mmol/L (98-107) 107mmol/L (98-107) Carbon Dioxide Level 21mmol/L (21-32) 22mmol/L (21-32) Anion Gap 15 (6-14) 15 (6-14) Blood Urea Nitrogen 17mg/dL (7-20) 19mg/dL (7-20) Creatinine 0.9mg/dL (0.6-1.0) 0.7mg/dL (0.6-1.0) Estimated GFR (Cockcroft-Gault) 60.6 80.9 BUN/Creatinine Ratio 19 (6-20) 27 (6-20) Glucose Level 113mg/dL (70-99) 94mg/dL (70-99) Calcium Level 9.2mg/dL (8.5-10.1) 8.6mg/dL (8.5-10.1) Total Bilirubin 0.5mg/dL (0.2-1.0) 0.4mg/dL (0.2-1.0) Aspartate Amino Transf (AST/SGOT) 35U/L (15-37) 34U/L (15-37) Alanine Aminotransferase (ALT/SGPT) 46U/L (14-59) 49U/L (14-59) Alkaline Phosphatase 103U/L (46-116) 91U/L (46-116) Troponin I Quantitative < 0.017ng/mL (0.000-0.055) Total Protein 8.2g/dL (6.4-8.2) 6.9g/dL (6.4-8.2) Albumin 3.8g/dL (3.4-5.0) 3.4g/dL (3.4-5.0) Albumin/Globulin Ratio 0.9 (1.0-1.7) 1.0 (1.0-1.7) Laboratory Tests Test 01/26/17 17:15 01/26/17 17:30 01/27/17 03:51 Urine Collection Type Unknown Urine Color Yellow Urine Clarity Clear Urine pH 6.0 Urine Specific Bromide 1.020 Urine Protein Negativemg/dL (NEG-TRACE) Urine Glucose (UA) Negativemg/dL (NEG) Urine Ketones (Stick) 40mg/dL (NEG) Urine Blood Small (NEG) Urine Nitrite Negative (NEG) Urine Bilirubin Small (NEG) Urine Urobilinogen Dipstick 1.0mg/dL (0.2 mg/dL) Urine Leukocyte Esterase Negative (NEG) Urine RBC 1-2/HPF (0-2) Urine WBC Occ/HPF (0-4) Urine Squamous Epithelial Cells Few/LPF Urine Bacteria 0/HPF (0-FEW) Urine Mucus Mod/LPF White Blood Count 8.4x10^3/uL (4.0-11.0) 6.6x10^3/uL (4.0-11.0) Red Blood Count 5.80x10^6/uL (3.50-5.40) 5.31x10^6/uL (3.50-5.40) Hemoglobin 15.2g/dL (12.0-15.5) 13.9g/dL (12.0-15.5) Hematocrit 46.6% (36.0-47.0) 43.5% (36.0-47.0) Mean Corpuscular Volume 80fL (79-100) 82fL (79-100) Mean Corpuscular Hemoglobin 26pg (25-35) 26pg (25-35) Mean Corpuscular Hemoglobin Concent 33g/dL (31-37) 32g/dL (31-37) Red Cell Distribution Width 15.0% (11.5-14.5) 15.0% (11.5-14.5) Platelet Count 275x10^3/uL (140-400) 225x10^3/uL (140-400) Neutrophils (%) (Auto) 88% (31-73) 81% (31-73) Lymphocytes (%) (Auto) 3% (24-48) 6% (24-48) Monocytes (%) (Auto) 8% (0-9) 13% (0-9) Eosinophils (%) (Auto) 0% (0-3) 0% (0-3) Basophils (%) (Auto) 0% (0-3) 0% (0-3) Neutrophils # (Auto) 7.5x10^3uL (1.8-7.7) 5.4x10^3uL (1.8-7.7) Lymphocytes # (Auto) 0.3x10^3/uL (1.0-4.8) 0.4x10^3/uL (1.0-4.8) Monocytes # (Auto) 0.7x10^3/uL (0.0-1.1) 0.8x10^3/uL (0.0-1.1) Eosinophils # (Auto) 0.0x10^3/uL (0.0-0.7) 0.0x10^3/uL (0.0-0.7) Basophils # (Auto) 0.0x10^3/uL (0.0-0.2) 0.0x10^3/uL (0.0-0.2) Segmented Neutrophils % 91% (35-66) Band Neutrophils % 4% (0-9) Lymphocytes % 2% (24-48) Monocytes % 3% (0-10) Platelet Estimate Adequate (ADEQUATE) Sodium Level 143mmol/L (136-145) 144mmol/L (136-145) Potassium Level 4.4mmol/L (3.5-5.1) 3.9mmol/L (3.5-5.1) Chloride Level 107mmol/L (98-107) 107mmol/L (98-107) Carbon Dioxide Level 21mmol/L (21-32) 22mmol/L (21-32) Anion Gap 15 (6-14) 15 (6-14) Blood Urea Nitrogen 17mg/dL (7-20) 19mg/dL (7-20) Creatinine 0.9mg/dL (0.6-1.0) 0.7mg/dL (0.6-1.0) Estimated GFR (Cockcroft-Gault) 60.6 80.9 BUN/Creatinine Ratio 19 (6-20) 27 (6-20) Glucose Level 113mg/dL (70-99) 94mg/dL (70-99) Calcium Level 9.2mg/dL (8.5-10.1) 8.6mg/dL (8.5-10.1) Total Bilirubin 0.5mg/dL (0.2-1.0) 0.4mg/dL (0.2-1.0) Aspartate Amino Transf (AST/SGOT) 35U/L (15-37) 34U/L (15-37) Alanine Aminotransferase (ALT/SGPT) 46U/L (14-59) 49U/L (14-59) Alkaline Phosphatase 103U/L (46-116) 91U/L (46-116) Troponin I Quantitative < 0.017ng/mL (0.000-0.055) Total Protein 8.2g/dL (6.4-8.2) 6.9g/dL (6.4-8.2) Albumin 3.8g/dL (3.4-5.0) 3.4g/dL (3.4-5.0) Albumin/Globulin Ratio 0.9 (1.0-1.7) 1.0 (1.0-1.7) Medications Current Medications Ondansetron HCl 4 mg 4 mg PRN Q8HRS PRN IV NAUSEA/VOMITING; Start 01/26/17 at 19:00; Stop 01/27/17 at 18:59 Sodium Chloride 1,000 ml @ 125 mls/hr Q8H IV ; Start 01/26/17 at 19:00; Stop at 18:59 Sodium Chloride (Iv Sodium Chloride 0.9% 1000ml Bag) 1,000 ml @ 75 mls/hr [id number] IV Last administered on 01/26/17t 20:20; Start 01/26/17 at 19:30 Acetaminophen (Tylenol) 325 mg PRN Q6HRS PRN PO MILD PAIN / TEMP; Start at 19:30 Acetaminophen/ Hydrocodone Bitart (Lortab 5/325) 1 tab PRN Q6HRS PRN PO MODERATE TO SEVERE PAIN; Start 01/26/17 at 19:30 Hydralazine HCl (Apresoline) 10 mg PRN Q4HRS PRN IVP ELEVATED BP, SEE COMMENTS ; Start 01/26/17 at 19:30 Ondansetron HCl (Zofran) 4 mg PRN Q8HRS PRN IV NAUSEA/VOMITING; Start 01/26/17 at 19:30 Albuterol Sulfate (Ventolin Neb Soln) 2.5 mg PRN Q4HRS PRN NEB SHORTNESS OF BREATH; Start 01/26/17 at 19:30 Active Scripts Active Macrobid 100 Mg Capsule (Nitrofurantoin Monohyd/M-Cryst) 100 Mg Capsule 1 Cap PO BID Seroquel (Quetiapine Fumarate) 25 Mg Tablet 25 Mg PO BID PRN Simvastatin 20 Mg Tablet 20 Mg PO HS Reported Aricept (Donepezil Hcl) 10 Mg Tablet 1 Tab PO DAILY Clopidogrel (Clopidogrel Bisulfate) 75 Mg Tablet 1 Tab PO DAILY Lisinopril 20 Mg Tablet 1 Tab PO DAILY Calcium 600 + D Tablet (Calcium Carbonate/Vitamin D3) 1 Each Tablet 1 Each PO Centrum Complete Multivit Tab (Multivitamin/Iron/Folic Acid) 1 Each Tablet 1 Each PO Paroxetine Hcl 10 Mg Tablet 10 Mg PO DAILY [hydrocodone-a] Oxycodone Hcl 5 Mg Tablet 5 Mg PO PRN Q6HRS PRN Vitals/I & O Vital Sign - Last 24 Hours 01/26/17 01/26/17 01/26/17 01/26/17 16:39 17:06 17:45 18:03 Temp 98.7 98.7 Pulse 78 96 96 90 Resp 20 21 18 18 B/P 180/70 189/88 138/64 143/87 Pulse Ox 98 97 98 97 O2 Delivery Room Air 01/26/17 01/26/17 01/26/17 01/26/17 19:33 20:03 21:35 23:17 Temp 100.1 100.1 Pulse 96 98 96 Resp B/P 156/74 159/70 128/78 Pulse Ox 98 96 91 O2 Delivery Room Air Room Air Room Air Room Air 01/26/17 01/27/17 01/27/17 23:53 03:01 07:00 Temp 98.2 97.7 98.1 98.2 97.7 98.1 Pulse 57 90 99 Resp B/P 131/71 166/82 160/94 Pulse Ox 95 94 94 O2 Delivery Room Air Room Air Room Air Intake and Output 01/26/17 01/26/17 01/27/17 15:00 23:00 07:00 Intake Total 0 ml Balance 0 ml TRISH ABEBE MD Jan 27, 2017 10:44
[2017-01-27 11:00] VITALS: BP 170/80
[2017-01-27] MEDS ORDERED: AA 3%/ELECTROLYTE-TPN SOLN/GLY 1,000 ML IV SCH (12:30)
[2017-01-27] MEDS: AA 2.75%/CALCIUM/LYTES/D5W 2,000 ML IV SCH (13:04)
[2017-01-27 15:00] VITALS: BP 140/77
[2017-01-27] MEDS ORDERED: AA 2.75%/CALCIUM/LYTES/D5W 2,000 ML IV SCH (16:00)
--- NOTE | 2017-01-27 17:49 | PDOC2 ---
NEUROLOGY CONSULT Date of Admission Date of Admission DATE: 01/27/17 TIME: 17:36 Reason for Consult Reason for Consult: Altered mental status Referring Physician Referring Physician: Dr. Sam PCP: Dr. Gambino Source Source: Caregiver, Chart review History of Present Illness History of Present Illness The patient is a 76-year-old right-handed female admitted with altered mental status. She is well known to the neurology service as both Dr. Valladares and myself have seen her. The patient has been debilitated for least 10 years, requiring a caregiver and in's the last several years has gotten around only with a wheelchair. The says he is needing more and more help that she is very difficult to maneuver and needs full assistance. She has had decreased appetite in the last few days. She has been more confused. When I saw her in August, she had a full workup for cerebrovascular disease with MRI and carotid Doppler is negative. I ordered an EEG which was canceled. I did start her on donepezil, but the did not notice any difference with this medication. There is no history of seizures or clear-cut history of any type of stroke. Although she has been given a diagnosis of "mini strokes" in the past, she has never had any focal symptoms, just intermittent confusion. She has a history of craniotomy for metastatic lung cancer. Past Medical History Cardiovascular: HTN CENTRAL NERVOUS SYSTEM: Dementia GI: GERD Heme/Onc: Cancer (lung with brain met) Psych: Depression Musculoskeletal: low back pain, Osteoarthritis ENT: Other (blind right eye, glaucoma) Renal/: UTI, Urinary Incontinence Endocrine: Osteoporosis Past Surgical History Past Surgical History: Appendectomy, Total hip replacement, Hysterectomy, Other (craniotomy, pneumonectomy, bilateral shoulder) Family History Family History: Cancer Social History Social History , quit smoking and using alcohol several years ago Current Medications Current Medications Current Medications Ondansetron HCl 4 mg 4 mg PRN Q8HRS PRN IV NAUSEA/VOMITING; Start 01/26/17 at 19:00; Stop 01/27/17 at 15:55; Status DC Sodium Chloride 1,000 ml @ 125 mls/hr Q8H IV ; Start 01/26/17 at 19:00; Stop at 18:59 Sodium Chloride (Iv Sodium Chloride 0.9% 1000ml Bag) 1,000 ml @ 75 mls/hr [id number] IV Last administered on 01/26/17 20:20; Start 01/26/17 at 19:30 Acetaminophen (Tylenol) 325 mg PRN Q6HRS PRN PO MILD PAIN / TEMP; Start at 19:30 Acetaminophen/ Hydrocodone Bitart (Lortab 5/325) 1 tab PRN Q6HRS PRN PO MODERATE TO SEVERE PAIN; Start 01/26/17 at 19:30 Hydralazine HCl (Apresoline) 10 mg PRN Q4HRS PRN IVP ELEVATED BP, SEE COMMENTS ; Start 01/26/17 at 19:30 Ondansetron HCl (Zofran) 4 mg PRN Q8HRS PRN IV NAUSEA/VOMITING; Start 01/26/17 at 19:30 Albuterol Sulfate 2.5 mg 2.5 mg PRN Q4HRS PRN NEB SHORTNESS OF BREATH; Start at 19:30 Amino Acids/ Electrolytes 2,000 ml @ 80 mls/hr Q24H IV Last administered on 13:04; Start 01/27/17 at 12:00 Amino Acids/ Glycerin/ Electrolytes 1,000 ml @ 80 mls/hr [id number] IV ; Start at 12:30; Status UNV Amino Acids/ Electrolytes (Clinimix E 2.75%-5% Solution) 2,000 ml @ 80 mls/hr Q24H IV ; Start 01/27/17 at 16:00; Status Cancel Active Scripts Active Macrobid 100 Mg Capsule (Nitrofurantoin Monohyd/M-Cryst) 100 Mg Capsule 1 Cap PO BID Seroquel (Quetiapine Fumarate) 25 Mg Tablet 25 Mg PO BID PRN Simvastatin 20 Mg Tablet 20 Mg PO HS Reported Aricept (Donepezil Hcl) 10 Mg Tablet 1 Tab PO DAILY Clopidogrel (Clopidogrel Bisulfate) 75 Mg Tablet 1 Tab PO DAILY Lisinopril 20 Mg Tablet 1 Tab PO DAILY Calcium 600 + D Tablet (Calcium Carbonate/Vitamin D3) 1 Each Tablet 1 Each PO Centrum Complete Multivit Tab (Multivitamin/Iron/Folic Acid) 1 Each Tablet 1 Each PO Paroxetine Hcl 10 Mg Tablet 10 Mg PO DAILY [hydrocodone-a] Oxycodone Hcl 5 Mg Tablet 5 Mg PO PRN Q6HRS PRN Allergies Allergies: Coded Allergies: No Known Drug Allergies (Unverified , 07/20/14) ROS Review of System Patient denies fevers, chills, weight loss, dyspnea, angina, abdominal pain, change in bowels, or dysuria. 14 point review of systems is negative. Physical Exam Physical Examination PHYSICAL EXAMINATION: Vital signs: see above. General appearance is normal and in no acute distress. HEENT: Normocephalic and nontraumatic. Eyes, nose, ears, and throat are unremarkable. Neck is supple. No lymphadenopathy. No bruits are heard over the carotid artery. No crepitus. NEUROLOGIC: Eyes are open, she does not respond to commands or voice. She does not respond to visual threat. Left pupil reacts, right doesn't, she is known blind in the right eye. There is no facial asymmetry. Reflexes are 1+ with silent plantar responses. There are bilateral grasp reflexes. She moves all extremities spontaneously. Tone is normal. She does not cooperate with cerebellar and sensory testing. Vitals VITALS Vital Signs Date Time Temp Pulse Resp B/P Pulse Ox O2 Delivery O2 Flow Rate FiO2 01/27/17 15:00 98.2 95 18 140/77 93 Room Air 98.2 Labs Labs Laboratory Tests Test 01/26/17 17:15 01/26/17 17:30 01/27/17 03:51 Urine Collection Type Unknown Urine Color Yellow Urine Clarity Clear Urine pH 6.0 Urine Specific [place] 1.020 Urine Protein Negativemg/dL (NEG-TRACE) Urine Glucose (UA) Negativemg/dL (NEG) Urine Ketones (Stick) 40mg/dL (NEG) Urine Blood Small (NEG) Urine Nitrite Negative (NEG) Urine Bilirubin Small (NEG) Urine Urobilinogen Dipstick 1.0mg/dL (0.2 mg/dL) Urine Leukocyte Esterase Negative (NEG) Urine RBC 1-2/HPF (0-2) Urine WBC Occ/HPF (0-4) Urine Squamous Epithelial Cells Few/LPF Urine Bacteria 0/HPF (0-FEW) Urine Mucus Mod/LPF White Blood Count 8.4x10^3/uL (4.0-11.0) 6.6x10^3/uL (4.0-11.0) Red Blood Count 5.80x10^6/uL (3.50-5.40) 5.31x10^6/uL (3.50-5.40) Hemoglobin 15.2g/dL (12.0-15.5) 13.9g/dL (12.0-15.5) Hematocrit 46.6% (36.0-47.0) 43.5% (36.0-47.0) Mean Corpuscular Volume 80fL (79-100) 82fL (79-100) Mean Corpuscular Hemoglobin 26pg (25-35) 26pg (25-35) Mean Corpuscular Hemoglobin Concent 33g/dL (31-37) 32g/dL (31-37) Red Cell Distribution Width 15.0% (11.5-14.5) 15.0% (11.5-14.5) Platelet Count 275x10^3/uL (140-400) 225x10^3/uL (140-400) Neutrophils (%) (Auto) 88% (31-73) 81% (31-73) Lymphocytes (%) (Auto) 3% (24-48) 6% (24-48) Monocytes (%) (Auto) 8% (0-9) 13% (0-9) Eosinophils (%) (Auto) 0% (0-3) 0% (0-3) Basophils (%) (Auto) 0% (0-3) 0% (0-3) Neutrophils # (Auto) 7.5x10^3uL (1.8-7.7) 5.4x10^3uL (1.8-7.7) Lymphocytes # (Auto) 0.3x10^3/uL (1.0-4.8) 0.4x10^3/uL (1.0-4.8) Monocytes # (Auto) 0.7x10^3/uL (0.0-1.1) 0.8x10^3/uL (0.0-1.1) Eosinophils # (Auto) 0.0x10^3/uL (0.0-0.7) 0.0x10^3/uL (0.0-0.7) Basophils # (Auto) 0.0x10^3/uL (0.0-0.2) 0.0x10^3/uL (0.0-0.2) Segmented Neutrophils % 91% (35-66) Band Neutrophils % 4% (0-9) Lymphocytes % 2% (24-48) Monocytes % 3% (0-10) Platelet Estimate Adequate (ADEQUATE) Sodium Level 143mmol/L (136-145) 144mmol/L (136-145) Potassium Level 4.4mmol/L (3.5-5.1) 3.9mmol/L (3.5-5.1) Chloride Level 107mmol/L (98-107) 107mmol/L (98-107) Carbon Dioxide Level 21mmol/L (21-32) 22mmol/L (21-32) Anion Gap 15 (6-14) 15 (6-14) Blood Urea Nitrogen 17mg/dL (7-20) 19mg/dL (7-20) Creatinine 0.9mg/dL (0.6-1.0) 0.7mg/dL (0.6-1.0) Estimated GFR (Cockcroft-Gault) 60.6 80.9 BUN/Creatinine Ratio 19 (6-20) 27 (6-20) Glucose Level 113mg/dL (70-99) 94mg/dL (70-99) Calcium Level 9.2mg/dL (8.5-10.1) 8.6mg/dL (8.5-10.1) Total Bilirubin 0.5mg/dL (0.2-1.0) 0.4mg/dL (0.2-1.0) Aspartate Amino Transf (AST/SGOT) 35U/L (15-37) 34U/L (15-37) Alanine Aminotransferase (ALT/SGPT) 46U/L (14-59) 49U/L (14-59) Alkaline Phosphatase 103U/L (46-116) 91U/L (46-116) Troponin I Quantitative < 0.017ng/mL (0.000-0.055) Total Protein 8.2g/dL (6.4-8.2) 6.9g/dL (6.4-8.2) Albumin 3.8g/dL (3.4-5.0) 3.4g/dL (3.4-5.0) Albumin/Globulin Ratio 0.9 (1.0-1.7) 1.0 (1.0-1.7) Laboratory Tests Test 01/27/17 03:51 White Blood Count 6.6x10^3/uL (4.0-11.0) Red Blood Count 5.31x10^6/uL (3.50-5.40) Hemoglobin 13.9g/dL (12.0-15.5) Hematocrit 43.5% (36.0-47.0) Mean Corpuscular Volume 82fL (79-100) Mean Corpuscular Hemoglobin 26pg (25-35) Mean Corpuscular Hemoglobin Concent 32g/dL (31-37) Red Cell Distribution Width 15.0% (11.5-14.5) Platelet Count 225x10^3/uL (140-400) Neutrophils (%) (Auto) 81% (31-73) Lymphocytes (%) (Auto) 6% (24-48) Monocytes (%) (Auto) 13% (0-9) Eosinophils (%) (Auto) 0% (0-3) Basophils (%) (Auto) 0% (0-3) Neutrophils # (Auto) 5.4x10^3uL (1.8-7.7) Lymphocytes # (Auto) 0.4x10^3/uL (1.0-4.8) Monocytes # (Auto) 0.8x10^3/uL (0.0-1.1) Eosinophils # (Auto) 0.0x10^3/uL (0.0-0.7) Basophils # (Auto) 0.0x10^3/uL (0.0-0.2) Sodium Level 144mmol/L (136-145) Potassium Level 3.9mmol/L (3.5-5.1) Chloride Level 107mmol/L (98-107) Carbon Dioxide Level 22mmol/L (21-32) Anion Gap 15 (6-14) Blood Urea Nitrogen 19mg/dL (7-20) Creatinine 0.7mg/dL (0.6-1.0) Estimated GFR (Cockcroft-Gault) 80.9 BUN/Creatinine Ratio 27 (6-20) Glucose Level 94mg/dL (70-99) Calcium Level 8.6mg/dL (8.5-10.1) Total Bilirubin 0.4mg/dL (0.2-1.0) Aspartate Amino Transf (AST/SGOT) 34U/L (15-37) Alanine Aminotransferase (ALT/SGPT) 49U/L (14-59) Alkaline Phosphatase 91U/L (46-116) Total Protein 6.9g/dL (6.4-8.2) Albumin 3.4g/dL (3.4-5.0) Albumin/Globulin Ratio 1.0 (1.0-1.7) Images Images CT head: Right frontoparietal craniotomy changes are again seen. Area of volume loss involving the right frontal lobe is similar to previous study. 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 Advanced, nonspecific white matter low attenuation is seen, probably from chronic microvascular ischemic disease. The ventricles are appropriate in size, shape, and location for the patient's age.No obvious intracranial mass, mass-effect, midline shift, hemorrhage or obvious acute infarction is identified.Basilar cisterns are patent. Right globe is unchanged, appearing hyperdense with areas calcification. Bone windows demonstrate no acute calvarial abnormality.The visualized paranasal sinuses appear clear. IMPRESSION 1. No acute intracranial process. Please note that CT can be relatively insensitive to acute ischemic infarction for up to 24 hours after symptom Assessment/Plan Assessment/Plan Impression: This patient has had long-standing dementia for as long as 10 years with intermittent episodes of confusion that confused physicians have called "mini strokes." Instead, these confusion episodes are normal progressions of dementia related to metabolic causes sometimes, but otherwise unexplained--such confusion episodes are normal for dementia. I doubt that she is having seizures and find no evidence of current central nervous system infection. The patient is somewhat dehydrated. However, the overall issue is that she has progressive dementia, most likely Alzheimer's, which is never going to get better, but instead is getting worse. There is no obvious reversible metabolic problem. She has had extensive workup including just 5 months ago for other causes of dementia. She failed to respond to donepezil. This is severe, late-stage Alzheimer's. History of right frontal craniotomy Recommendations: I discussed my findings with the patient's . He is agreeable to DO NOT RESUSCITATE I asked him to discuss with the family more of a palliative approach, allowing a natural if the patient is unable to regain her own nutrition. He is agreeable to thinking about this I consulted the palliative care I see no need to repeat or do additional neurological studies such as electroencephalogram Thank you for letting me help with the patient's care. RORY FAULKNER MD Jan 27, 2017 17:49
[2017-01-27 19:36] VITALS: BP 139/80
[2017-01-27 23:01] VITALS: BP 150/75
[2017-01-28 02:25] VITALS: BP 115/98
[2017-01-28 07:00] VITALS: BP 117/66
--- NOTE | 2017-01-28 10:07 | PDOC ---
PROGRESS NOTES Assessment Problems Medical Problems: (1) Altered mental status Status: Acute Long-standing dementia, late-stage Alzheimer's. She is more alert today History of right frontal craniotomy Plan Check swallowing Discharge planning Covering neurologist will see only PRN over weekend Subjective No complaints Objective Vital Signs Date Time Temp Pulse Resp B/P Pulse Ox O2 Delivery O2 Flow Rate FiO2 01/28/17 07:00 98.3 81 18 117/66 94 Room Air 98.3 Intake and Output 01/28/17 07:00 Intake Total 50 ml Balance 50 ml Intake Oral 50 ml # Voids 6 PHYSICAL EXAM More alert. She can tell me her name and knows that she is in the hospital, does not know the date PERRL. EOMI. CN: no focal findings. Muscle tone: normal. Muscle strength: 4/5 DTR: 1+ Plantar reflex: flexor Gait: not examined in bed. Sensory exam: no abnormal findings. No cerebellar signs elicited. Review of Relevant I have reviewed the following items vishnu (where applicable) has been applied. Labs Laboratory Tests Test 01/26/17 17:15 01/26/17 17:30 01/27/17 03:51 Urine Collection Type Unknown Urine Color Yellow Urine Clarity Clear Urine pH 6.0 Urine Specific [place] 1.020 Urine Protein Negativemg/dL (NEG-TRACE) Urine Glucose (UA) Negativemg/dL (NEG) Urine Ketones (Stick) 40mg/dL (NEG) Urine Blood Small (NEG) Urine Nitrite Negative (NEG) Urine Bilirubin Small (NEG) Urine Urobilinogen Dipstick 1.0mg/dL (0.2 mg/dL) Urine Leukocyte Esterase Negative (NEG) Urine RBC 1-2/HPF (0-2) Urine WBC Occ/HPF (0-4) Urine Squamous Epithelial Cells Few/LPF Urine Bacteria 0/HPF (0-FEW) Urine Mucus Mod/LPF White Blood Count 8.4x10^3/uL (4.0-11.0) 6.6x10^3/uL (4.0-11.0) Red Blood Count 5.80x10^6/uL (3.50-5.40) 5.31x10^6/uL (3.50-5.40) Hemoglobin 15.2g/dL (12.0-15.5) 13.9g/dL (12.0-15.5) Hematocrit 46.6% (36.0-47.0) 43.5% (36.0-47.0) Mean Corpuscular Volume 80fL (79-100) 82fL (79-100) Mean Corpuscular Hemoglobin 26pg (25-35) 26pg (25-35) Mean Corpuscular Hemoglobin Concent 33g/dL (31-37) 32g/dL (31-37) Red Cell Distribution Width 15.0% (11.5-14.5) 15.0% (11.5-14.5) Platelet Count 275x10^3/uL (140-400) 225x10^3/uL (140-400) Neutrophils (%) (Auto) 88% (31-73) 81% (31-73) Lymphocytes (%) (Auto) 3% (24-48) 6% (24-48) Monocytes (%) (Auto) 8% (0-9) 13% (0-9) Eosinophils (%) (Auto) 0% (0-3) 0% (0-3) Basophils (%) (Auto) 0% (0-3) 0% (0-3) Neutrophils # (Auto) 7.5x10^3uL (1.8-7.7) 5.4x10^3uL (1.8-7.7) Lymphocytes # (Auto) 0.3x10^3/uL (1.0-4.8) 0.4x10^3/uL (1.0-4.8) Monocytes # (Auto) 0.7x10^3/uL (0.0-1.1) 0.8x10^3/uL (0.0-1.1) Eosinophils # (Auto) 0.0x10^3/uL (0.0-0.7) 0.0x10^3/uL (0.0-0.7) Basophils # (Auto) 0.0x10^3/uL (0.0-0.2) 0.0x10^3/uL (0.0-0.2) Segmented Neutrophils % 91% (35-66) Band Neutrophils % 4% (0-9) Lymphocytes % 2% (24-48) Monocytes % 3% (0-10) Platelet Estimate Adequate (ADEQUATE) Sodium Level 143mmol/L (136-145) 144mmol/L (136-145) Potassium Level 4.4mmol/L (3.5-5.1) 3.9mmol/L (3.5-5.1) Chloride Level 107mmol/L (98-107) 107mmol/L (98-107) Carbon Dioxide Level 21mmol/L (21-32) 22mmol/L (21-32) Anion Gap 15 (6-14) 15 (6-14) Blood Urea Nitrogen 17mg/dL (7-20) 19mg/dL (7-20) Creatinine 0.9mg/dL (0.6-1.0) 0.7mg/dL (0.6-1.0) Estimated GFR (Cockcroft-Gault) 60.6 80.9 BUN/Creatinine Ratio 19 (6-20) 27 (6-20) Glucose Level 113mg/dL (70-99) 94mg/dL (70-99) Calcium Level 9.2mg/dL (8.5-10.1) 8.6mg/dL (8.5-10.1) Total Bilirubin 0.5mg/dL (0.2-1.0) 0.4mg/dL (0.2-1.0) Aspartate Amino Transf (AST/SGOT) 35U/L (15-37) 34U/L (15-37) Alanine Aminotransferase (ALT/SGPT) 46U/L (14-59) 49U/L (14-59) Alkaline Phosphatase 103U/L (46-116) 91U/L (46-116) Troponin I Quantitative < 0.017ng/mL (0.000-0.055) Total Protein 8.2g/dL (6.4-8.2) 6.9g/dL (6.4-8.2) Albumin 3.8g/dL (3.4-5.0) 3.4g/dL (3.4-5.0) Albumin/Globulin Ratio 0.9 (1.0-1.7) 1.0 (1.0-1.7) Medications Current Medications Ondansetron HCl 4 mg 4 mg PRN Q8HRS PRN IV NAUSEA/VOMITING; Start 01/26/17 at 19:00; Stop 01/27/17 at 15:55; Status DC Sodium Chloride 1,000 ml @ 125 mls/hr Q8H IV ; Start 01/26/17 at 19:00; Stop at 18:59; Status DC Sodium Chloride (Iv Sodium Chloride 0.9% 1000ml Bag) 1,000 ml @ 75 mls/hr [id number] IV Last administered on 01/26/17 20:20; Start 01/26/17 at 19:30 Acetaminophen (Tylenol) 325 mg PRN Q6HRS PRN PO MILD PAIN / TEMP; Start at 19:30 Acetaminophen/ Hydrocodone Bitart (Lortab 5/325) 1 tab PRN Q6HRS PRN PO MODERATE TO SEVERE PAIN; Start 01/26/17 at 19:30 Hydralazine HCl (Apresoline) 10 mg PRN Q4HRS PRN IVP ELEVATED BP, SEE COMMENTS ; Start 01/26/17 at 19:30 Ondansetron HCl (Zofran) 4 mg PRN Q8HRS PRN IV NAUSEA/VOMITING; Start 01/26/17 at 19:30 Albuterol Sulfate 2.5 mg 2.5 mg PRN Q4HRS PRN NEB SHORTNESS OF BREATH; Start at 19:30 Amino Acids/ Electrolytes 2,000 ml @ 80 mls/hr Q24H IV Last administered on 13:04; Start 01/27/17 at 12:00 Amino Acids/ Glycerin/ Electrolytes 1,000 ml @ 80 mls/hr [id number] IV ; Start at 12:30; Status UNV Amino Acids/ Electrolytes (Clinimix E 2.75%-5% Solution) 2,000 ml @ 80 mls/hr Q24H IV ; Start 01/27/17 at 16:00; Status Cancel Active Scripts Active Macrobid 100 Mg Capsule (Nitrofurantoin Monohyd/M-Cryst) 100 Mg Capsule 1 Cap PO BID Seroquel (Quetiapine Fumarate) 25 Mg Tablet 25 Mg PO BID PRN Simvastatin 20 Mg Tablet 20 Mg PO HS Reported Aricept (Donepezil Hcl) 10 Mg Tablet 1 Tab PO DAILY Clopidogrel (Clopidogrel Bisulfate) 75 Mg Tablet 1 Tab PO DAILY Lisinopril 20 Mg Tablet 1 Tab PO DAILY Calcium 600 + D Tablet (Calcium Carbonate/Vitamin D3) 1 Each Tablet 1 Each PO Centrum Complete Multivit Tab (Multivitamin/Iron/Folic Acid) 1 Each Tablet 1 Each PO Paroxetine Hcl 10 Mg Tablet 10 Mg PO DAILY [hydrocodone-a] Oxycodone Hcl 5 Mg Tablet 5 Mg PO PRN Q6HRS PRN Vitals/I & O Vital Sign - Last 24 Hours 01/27/17 01/27/17 01/27/17 01/27/17 11:00 15:00 19:36 20:00 Temp 98.4 98.2 99.2 98.4 98.2 99.2 Pulse 101 95 96 Resp 18 B/P 170/80 140/77 139/80 Pulse Ox 94 93 94 O2 Delivery Room Air Room Air Room Air Room Air 01/27/17 01/28/17 01/28/17 23:01 02:25 07:00 Temp 98.4 98.5 98.3 98.4 98.5 98.3 Pulse 88 81 81 Resp 18 B/P 150/75 115/98 117/66 Pulse Ox 93 93 94 O2 Delivery Room Air Room Air Room Air Intake and Output 01/27/17 01/27/17 01/28/17 15:00 23:00 07:00 Intake Total 50 ml 0 ml Balance 50 ml 0 ml RORY FAULKNER MD Jan 28, 2017 10:07
--- NOTE | 2017-01-28 10:09 | PDOC ---
PROGRESS NOTES Chief Complaint Chief Complaint A/P 1. Severe dehydration. 2. Altered mental status, possible worsening dementia. 3. History of coronary artery disease. 4. Multiple fall history. 5. Physical inability. Plan PPN spoke with caretakers,mentation improved Palliative consultation pending SW for placement. Vitals Vitals Vital Signs Date Time Temp Pulse Resp B/P Pulse Ox O2 Delivery O2 Flow Rate FiO2 01/28/17 07:00 98.3 81 18 117/66 94 Room Air 98.3 Physical Exam General: Alert Heart: Normal S1, Normal S2 Lungs: Clear, Wheezing Abdomen: Normal bowel sounds, Soft Assessment and Plan Assessmemt and Plan Problems Medical Problems: (1) Altered mental status Status: Acute Problems: Comment Review of Relevant I have reviewed the following items vishnu (where applicable) has been applied. Labs Laboratory Tests Test 01/26/17 17:15 01/26/17 17:30 01/27/17 03:51 Urine Collection Type Unknown Urine Color Yellow Urine Clarity Clear Urine pH 6.0 Urine Specific [place] 1.020 Urine Protein Negativemg/dL (NEG-TRACE) Urine Glucose (UA) Negativemg/dL (NEG) Urine Ketones (Stick) 40mg/dL (NEG) Urine Blood Small (NEG) Urine Nitrite Negative (NEG) Urine Bilirubin Small (NEG) Urine Urobilinogen Dipstick 1.0mg/dL (0.2 mg/dL) Urine Leukocyte Esterase Negative (NEG) Urine RBC 1-2/HPF (0-2) Urine WBC Occ/HPF (0-4) Urine Squamous Epithelial Cells Few/LPF Urine Bacteria 0/HPF (0-FEW) Urine Mucus Mod/LPF White Blood Count 8.4x10^3/uL (4.0-11.0) 6.6x10^3/uL (4.0-11.0) Red Blood Count 5.80x10^6/uL (3.50-5.40) 5.31x10^6/uL (3.50-5.40) Hemoglobin 15.2g/dL (12.0-15.5) 13.9g/dL (12.0-15.5) Hematocrit 46.6% (36.0-47.0) 43.5% (36.0-47.0) Mean Corpuscular Volume 80fL (79-100) 82fL (79-100) Mean Corpuscular Hemoglobin 26pg (25-35) 26pg (25-35) Mean Corpuscular Hemoglobin Concent 33g/dL (31-37) 32g/dL (31-37) Red Cell Distribution Width 15.0% (11.5-14.5) 15.0% (11.5-14.5) Platelet Count 275x10^3/uL (140-400) 225x10^3/uL (140-400) Neutrophils (%) (Auto) 88% (31-73) 81% (31-73) Lymphocytes (%) (Auto) 3% (24-48) 6% (24-48) Monocytes (%) (Auto) 8% (0-9) 13% (0-9) Eosinophils (%) (Auto) 0% (0-3) 0% (0-3) Basophils (%) (Auto) 0% (0-3) 0% (0-3) Neutrophils # (Auto) 7.5x10^3uL (1.8-7.7) 5.4x10^3uL (1.8-7.7) Lymphocytes # (Auto) 0.3x10^3/uL (1.0-4.8) 0.4x10^3/uL (1.0-4.8) Monocytes # (Auto) 0.7x10^3/uL (0.0-1.1) 0.8x10^3/uL (0.0-1.1) Eosinophils # (Auto) 0.0x10^3/uL (0.0-0.7) 0.0x10^3/uL (0.0-0.7) Basophils # (Auto) 0.0x10^3/uL (0.0-0.2) 0.0x10^3/uL (0.0-0.2) Segmented Neutrophils % 91% (35-66) Band Neutrophils % 4% (0-9) Lymphocytes % 2% (24-48) Monocytes % 3% (0-10) Platelet Estimate Adequate (ADEQUATE) Sodium Level 143mmol/L (136-145) 144mmol/L (136-145) Potassium Level 4.4mmol/L (3.5-5.1) 3.9mmol/L (3.5-5.1) Chloride Level 107mmol/L (98-107) 107mmol/L (98-107) Carbon Dioxide Level 21mmol/L (21-32) 22mmol/L (21-32) Anion Gap 15 (6-14) 15 (6-14) Blood Urea Nitrogen 17mg/dL (7-20) 19mg/dL (7-20) Creatinine 0.9mg/dL (0.6-1.0) 0.7mg/dL (0.6-1.0) Estimated GFR (Cockcroft-Gault) 60.6 80.9 BUN/Creatinine Ratio 19 (6-20) 27 (6-20) Glucose Level 113mg/dL (70-99) 94mg/dL (70-99) Calcium Level 9.2mg/dL (8.5-10.1) 8.6mg/dL (8.5-10.1) Total Bilirubin 0.5mg/dL (0.2-1.0) 0.4mg/dL (0.2-1.0) Aspartate Amino Transf (AST/SGOT) 35U/L (15-37) 34U/L (15-37) Alanine Aminotransferase (ALT/SGPT) 46U/L (14-59) 49U/L (14-59) Alkaline Phosphatase 103U/L (46-116) 91U/L (46-116) Troponin I Quantitative < 0.017ng/mL (0.000-0.055) Total Protein 8.2g/dL (6.4-8.2) 6.9g/dL (6.4-8.2) Albumin 3.8g/dL (3.4-5.0) 3.4g/dL (3.4-5.0) Albumin/Globulin Ratio 0.9 (1.0-1.7) 1.0 (1.0-1.7) Medications Current Medications Ondansetron HCl 4 mg 4 mg PRN Q8HRS PRN IV NAUSEA/VOMITING; Start 01/26/17 at 19:00; Stop 01/27/17 at 15:55; Status DC Sodium Chloride 1,000 ml @ 125 mls/hr Q8H IV ; Start 01/26/17 at 19:00; Stop at 18:59; Status DC Sodium Chloride (Iv Sodium Chloride 0.9% 1000ml Bag) 1,000 ml @ 75 mls/hr [id number] IV Last administered on 01/26/17 20:20; Start 01/26/17 at 19:30 Acetaminophen (Tylenol) 325 mg PRN Q6HRS PRN PO MILD PAIN / TEMP; Start at 19:30 Acetaminophen/ Hydrocodone Bitart (Lortab 5/325) 1 tab PRN Q6HRS PRN PO MODERATE TO SEVERE PAIN; Start 01/26/17 at 19:30 Hydralazine HCl (Apresoline) 10 mg PRN Q4HRS PRN IVP ELEVATED BP, SEE COMMENTS ; Start 01/26/17 at 19:30 Ondansetron HCl (Zofran) 4 mg PRN Q8HRS PRN IV NAUSEA/VOMITING; Start 01/26/17 at 19:30 Albuterol Sulfate 2.5 mg 2.5 mg PRN Q4HRS PRN NEB SHORTNESS OF BREATH; Start at 19:30 Amino Acids/ Electrolytes 2,000 ml @ 80 mls/hr Q24H IV Last administered on 13:04; Start 01/27/17 at 12:00 Amino Acids/ Glycerin/ Electrolytes 1,000 ml @ 80 mls/hr [id number] IV ; Start at 12:30; Status UNV Amino Acids/ Electrolytes (Clinimix E 2.75%-5% Solution) 2,000 ml @ 80 mls/hr Q24H IV ; Start 01/27/17 at 16:00; Status Cancel Active Scripts Active Macrobid 100 Mg Capsule (Nitrofurantoin Monohyd/M-Cryst) 100 Mg Capsule 1 Cap PO BID Seroquel (Quetiapine Fumarate) 25 Mg Tablet 25 Mg PO BID PRN Simvastatin 20 Mg Tablet 20 Mg PO HS Reported Aricept (Donepezil Hcl) 10 Mg Tablet 1 Tab PO DAILY Clopidogrel (Clopidogrel Bisulfate) 75 Mg Tablet 1 Tab PO DAILY Lisinopril 20 Mg Tablet 1 Tab PO DAILY Calcium 600 + D Tablet (Calcium Carbonate/Vitamin D3) 1 Each Tablet 1 Each PO Centrum Complete Multivit Tab (Multivitamin/Iron/Folic Acid) 1 Each Tablet 1 Each PO Paroxetine Hcl 10 Mg Tablet 10 Mg PO DAILY [hydrocodone-a] Oxycodone Hcl 5 Mg Tablet 5 Mg PO PRN Q6HRS PRN Vitals/I & O Vital Sign - Last 24 Hours 01/27/17 01/27/17 01/27/17 01/27/17 11:00 15:00 19:36 20:00 Temp 98.4 98.2 99.2 98.4 98.2 99.2 Pulse 101 95 96 Resp 18 B/P 170/80 140/77 139/80 Pulse Ox 94 93 94 O2 Delivery Room Air Room Air Room Air Room Air 01/27/17 01/28/17 01/28/17 23:01 02:25 07:00 Temp 98.4 98.5 98.3 98.4 98.5 98.3 Pulse 88 81 81 Resp 18 B/P 150/75 115/98 117/66 Pulse Ox 93 93 94 O2 Delivery Room Air Room Air Room Air Intake and Output 01/27/17 01/27/17 01/28/17 15:00 23:00 07:00 Intake Total 50 ml 0 ml Balance 50 ml 0 ml TRISH ABEBE MD Jan 28, 2017 10:08
[2017-01-28 11:00] VITALS: BP 105/49
[2017-01-28] MEDS ORDERED: DOCU-27 PO (11:56)
[2017-01-28] MEDS: AA 2.75%/CALCIUM/LYTES/D5W 2,000 ML IV SCH (12:00)
--- NOTE | 2017-01-28 13:46 | PDOC2 ---
PALLIATIVE CARE Palliative Care Note Palliative Care Consult requested by Dr. Wu to address goals of care. Patient alert. 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 Diagnosis; Severe dehydration--improved; dementia (x 10 years) worsening of symptoms and AMS changes. 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 Patient stands but does not ambulate. eating with assistance. Patient has caregivers at home. would like to keep her at home. Discussed Hospice with the goal of comfort and try to keep more health care at home--not returning to the hospital. States he would not want a PEG tube. Confirmed Code Status; DNR/DNI Outside the hospital form signed. They have been 57 years. Patient worked for [employer]. They have 2 sons-- one lives locally. has no preference in Hospice Agency. Not interested in any DME at this time. Will speak with caregivers and obtain their input. Plan: Hospice [facility] --no preference. DNR/DNI BRISSA AVERY Jan 28, 2017 13:46
[2017-01-28 15:00] VITALS: BP 111/48
[2017-01-28 19:59] VITALS: BP 102/40
[2017-01-28] MEDS: IV NORMAL SALINE 1000ML BAG 1,000 ML IV SCH (21:38)
[2017-01-28 23:20] VITALS: BP 101/50
[2017-01-29 03:51] VITALS: BP 126/53
[2017-01-29 08:00] VITALS: BP 105/50
--- NOTE | 2017-01-29 09:53 | PDOC ---
PROGRESS NOTES Chief Complaint Chief Complaint A/P 1. Severe dehydration improving. 2. Altered mental status, possible worsening dementia. 3. History of coronary artery disease. 4. Multiple fall history. 5. Physical inability. Plan PPN spoke with caretakers,mentation improved back to baseline. 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 Vitals Vitals Vital Signs Date Time Temp Pulse Resp B/P Pulse Ox O2 Delivery O2 Flow Rate FiO2 01/29/17 08:00 99.4 85 16 105/50 96 Room Air 99.4 Physical Exam General: Alert Heart: Normal S1, Normal S2 Lungs: Clear, Wheezing Abdomen: Normal bowel sounds, Soft Assessment and Plan Assessmemt and Plan Problems Medical Problems: (1) Altered mental status Status: Acute Problems: Comment Review of Relevant I have reviewed the following items vishnu (where applicable) has been applied. Medications Current Medications Ondansetron HCl 4 mg 4 mg PRN Q8HRS PRN IV NAUSEA/VOMITING; Start 01/26/17 at 19:00; Stop 01/27/17 at 15:55; Status DC Sodium Chloride 1,000 ml @ 125 mls/hr Q8H IV ; Start 01/26/17 at 19:00; Stop at 18:59; Status DC Sodium Chloride (Iv Sodium Chloride 0.9% 1000ml Bag) 1,000 ml @ 75 mls/hr [id number] IV Last administered on 01/26/17t 20:20; Start 01/26/17 at 19:30; Stop 01/28/17 at 21:37; Status DC Acetaminophen (Tylenol) 325 mg PRN Q6HRS PRN PO MILD PAIN / TEMP; Start at 19:30 Acetaminophen/ Hydrocodone Bitart (Lortab 5/325) 1 tab PRN Q6HRS PRN PO MODERATE TO SEVERE PAIN; Start 01/26/17 at 19:30 Hydralazine HCl (Apresoline) 10 mg PRN Q4HRS PRN IVP ELEVATED BP, SEE COMMENTS ; Start 01/26/17 at 19:30 Ondansetron HCl (Zofran) 4 mg PRN Q8HRS PRN IV NAUSEA/VOMITING; Start 01/26/17 at 19:30 Albuterol Sulfate 2.5 mg 2.5 mg PRN Q4HRS PRN NEB SHORTNESS OF BREATH; Start at 19:30 Amino Acids/ Electrolytes 2,000 ml @ 80 mls/hr Q24H IV Last administered on t 12:00; Start 01/27/17 at 12:00 Amino Acids/ Glycerin/ Electrolytes 1,000 ml @ 80 mls/hr [id number] IV ; Start at 12:30; Status UNV Amino Acids/ Electrolytes (Clinimix E 2.75%-5% Solution) 2,000 ml @ 80 mls/hr Q24H IV ; Start 01/27/17 at 16:00; Status Cancel Active Scripts Active Macrobid 100 Mg Capsule (Nitrofurantoin Monohyd/M-Cryst) 100 Mg Capsule 1 Cap PO BID Seroquel (Quetiapine Fumarate) 25 Mg Tablet 25 Mg PO BID PRN Simvastatin 20 Mg Tablet 20 Mg PO HS Reported Colace (Docusate Sodium) 100 Mg Capsule 1 Cap PO PRN PRN Aricept (Donepezil Hcl) 10 Mg Tablet 1 Tab PO DAILY Clopidogrel (Clopidogrel Bisulfate) 75 Mg Tablet 1 Tab PO DAILY Lisinopril 20 Mg Tablet 1 Tab PO DAILY Calcium 600 + D Tablet (Calcium Carbonate/Vitamin D3) 1 Each Tablet 1 Each PO Centrum Complete Multivit Tab (Multivitamin/Iron/Folic Acid) 1 Each Tablet 1 Each PO Paroxetine Hcl 10 Mg Tablet 10 Mg PO DAILY [hydrocodone-a] Oxycodone Hcl 5 Mg Tablet 5 Mg PO PRN Q6HRS PRN Vitals/I & O Vital Sign - Last 24 Hours 01/28/17 01/28/17 01/28/17 01/28/17 11:00 15:00 19:59 20:00 Temp 98.5 98.4 97.5 98.5 98.4 97.5 Pulse 74 75 83 Resp 16 B/P 105/49 111/48 102/40 Pulse Ox 92 93 98 O2 Delivery Room Air Room Air Room Air Room Air 01/28/17 01/29/17 01/29/17 23:20 03:51 08:00 Temp 97.9 96.6 99.4 97.9 96.6 99.4 Pulse 77 74 85 Resp 16 16 16 B/P 101/50 126/53 105/50 Pulse Ox 93 95 96 O2 Delivery Room Air Room Air Room Air Intake and Output 01/28/17 01/28/17 01/29/17 15:00 23:00 07:00 Intake Total 100 ml Balance 100 ml Nutrition Consultation Dietary Evaluation: Recommendations by RD: Increase Calorie Intake, Protein supplementation Comments: added boost pudding and boost/ensure ice cream shakes bid Expected Outcomes/Goals: increase po intake to > 50% est nutr needs Malnutrition Findings: Body Fat Depletion (Non Severe: Mild Depletion Reduced Director Of Agronomy Strength: N/A Weight Status: Appropriate Fluid Accumulation (N/A): N/A TRISH ABEBE MD Jan 29, 2017 09:53
[2017-01-29 11:00] VITALS: BP 107/62
--- NOTE | 2017-01-29 21:52 | DS ---
DATE OF DISCHARGE: 01/29/2017 DISCHARGE DIAGNOSES: 1. Altered mental state due to worsening dementia. 2. Severe dehydration due to decreased oral intake. 3. Multiple falls history. 4. Physical debility due to age. BRIEF HOSPITAL COURSE: A 76-year-old female patient admitted to the hospital for severe dehydration and longstanding dementia. At the time of admission, the patient was in altered mental status with worsening dementia as per the . She was started on IV hydration and in 2 days, her symptoms have been slowly improved and now she could able to eat at bedside and able to respond to questions. At this time, she is at her baseline status. Palliative team has been consulted to discuss goals of care. Family is confirmed that the patient wants to DNR/DNI and would like to take her home and discuss about hospice goals. DISCHARGE PHYSICAL EXAMINATION: Please see my progress note.. DISCHARGE CONDITION: Stable. PROGNOSIS: guarded MEDICATIONS: Reviewed and reconciled. Please see MRAD. Total time spent for discharge is 33 minutes for the patient's education, counseling, and coordination of care. TRISH ABEBE MD DR: DANIEL/becky JOB#: [id number] / [id number] KRISTIE
== END 2017-01-29 15:36 | disposition home or self-care (01) | DRG 884 ==
LOC: ER 16:32 → 6 SOUTH 18:50 → UNDODISIN 01-27 14:11
PROVIDERS: ADMIT Internal Medicine; ATTEND Internal Medicine
DX: F03.90 Unspecified dementia, unspecified severity, without behavioral disturbance, psychotic disturbance, mood disturbance, and anxiety (principal); G30.1 Alzheimer's disease with late onset; E78.5 Hyperlipidemia, unspecified; F32.9 Major depressive disorder, single episode, unspecified; H40.9 Unspecified glaucoma; H54.41 Blindness, right eye, normal vision left eye; I10 Essential (primary) hypertension; I25.10 Atherosclerotic heart disease of native coronary artery without angina pectoris; Z96.649 Presence of unspecified artificial hip joint; K21.9 Gastro-esophageal reflux disease without esophagitis; M81.0 Age-related osteoporosis without current pathological fracture; R29.6 Repeated falls; Z66 Do not resuscitate; Z85.118 Personal history of other malignant neoplasm of bronchus and lung; Z86.73 Personal history of transient ischemic attack (TIA), and cerebral infarction without residual deficits; Z90.49 Acquired absence of other specified parts of digestive tract; I25.2 Old myocardial infarction; Z87.440 Personal history of urinary (tract) infections; Z79.899 Other long term (current) drug therapy; Z90.710 Acquired absence of both cervix and uterus; Z87.891 Personal history of nicotine dependence
CPT/HCPCS: 36415; 70450; 71010; 80053; 81001; 84484; 85007; 85027; 93005; J7030; 92610; 99285-25

== ENCOUNTER 2017-05-22 10:49 | Emergency (ER) | payer MEDICARE ==
[~2017-05-22 10:49] MED LIST changes: +DOCU-109 PO; -DONE10TA34 PO; +DONE10TA61 PO
--- NOTE | 2017-05-22 11:10 | PHYS DOC ---
Past Medical History Past Medical History: Arthritis, Cancer, Dementia, Depression, GERD, Hypertension, TIA, Other Additional Past Medical Histor: TIA's(balance problems since), multiple falls - joint and bone pain, Lung C Past Surgical History: Appendectomy, Cholecystectomy, Hysterectomy, Other Additional Past Surgical Histo: shoulder, Brain tumor Alcohol Use: None Drug Use: None Adult General Chief Complaint Chief Complaint: NEURO SYMPTOMS/DEFICITS HPI HPI Patient is a 76 year old female presenting to the emergency department for evaluation of transient lethargy this morning. Of note patient is end-stage Alzheimer's disease on hospice care currently. was concerned about her this morning as she woke up and she was very lethargic and difficult to arouse. wanted her to come to the hospital. Hospice nurse came and explained what that meant but has been said he wanted everything done for her. Patient's last known baseline would be yesterday evening. Patient has minimal mental function and is disoriented all of the time it was more than lethargy that concerned the . On arrival he admits that she is improving and is almost back to baseline just somewhat sleepy. She is moving all of her extremities and has no facial droop on exam. Review of Systems Review of Systems Unable to obtain due to underlying dementia Current Medications Current Medications Current Medications Medications (Trade) Dose Ordered Sig/Jose Start Time Stop Time Status Last Admin Dose Admin Sodium Chloride 1,000 ml @ 1,000 mls/hr 1X ONCE 05/22/17 11:15 05/22/17 12:14 DC 05/22/17 11:50 1,000 MLS/HR Allergies Allergies Allergies Coded Allergies Type Severity Reaction Last Updated Verified No Known Drug Allergies 07/20/14 No Physical Exam Physical Exam Constitutional: Chronically ill elderly female HENT: Normocephalic, atraumatic, bilateral external ears normal, oropharynx dry , no oral exudates, nose normal. [] Eyes: PERRLA, EOMI, conjunctiva normal, no discharge. [] Neck: Normal range of motion, no tenderness, supple, no stridor. [] Cardiovascular:Heart rate regular rhythm, no murmur [] Lungs & Thorax: Bilateral breath sounds clear to auscultation [] Abdomen: Bowel sounds normal, soft, no tenderness, no masses, no pulsatile masses. [] Skin: Warm, dry, no erythema, no rash. [] Back: No tenderness, no CVA tenderness. [] Extremities: No tenderness, no cyanosis, no clubbing, ROM intact, no edema. [] Neurologic: Alert and oriented X 0, moves all extremities Current Patient Data Vital Signs Vital Signs Date Time Temp Pulse Resp B/P (MAP) Pulse Ox O2 Delivery O2 Flow Rate FiO2 05/22/17 11:00 95 20 170/83 (112) 96 Room Air Lab Values Laboratory Tests Test 05/22/17 11:00 05/22/17 11:16 Glucose (Fingerstick) 111 mg/dL (70-99) H Urine Collection Type U cath Urine Color Yellow Urine Clarity Clear Urine pH 7.0 Urine Specific Gap 1.020 Urine Protein Negative mg/dL (NEG-TRACE) Urine Glucose (UA) Negative mg/dL (NEG) Urine Ketones (Stick) Negative mg/dL (NEG) Urine Blood Negative (NEG) Urine Nitrite Negative (NEG) Urine Bilirubin Negative (NEG) Urine Urobilinogen Dipstick 1.0 mg/dL (0.2 mg/dL) Urine Leukocyte Esterase Small (NEG) Urine RBC 0 /HPF (0-2) Urine WBC 1-4 /HPF (0-4) Urine Squamous Epithelial Cells None /LPF Urine Bacteria Moderate /HPF (0-FEW) EKG EKG Baseline artifact with sinus tachycardia with no obvious ST elevation or depression biphasic T-wave in V3 otherwise EKG nondiagnostic. Radiology/Procedures Radiology/Procedures Examination: Single frontal view of the chest History: History of altered mental status. Comparison: 01/26/2017 Findings: The cardiomediastinal silhouette appears prominent probably due to patient rotation. There is no acute infiltrate or visualized pneumothorax identified. Lucency identified in the left upper lateral lung likely secondary to skin fold. Moderate aortic atherosclerosis. A right humerus prosthesis identified. Hardware identified in the left humerus. Impression: No acute cardiopulmonary findings. DICTATED and SIGNED BY: TIMO ALBA MD DATE: 05/22/17 1140 Examination: CT head without contrast History: History of left-sided facial droop, code stroke. Comparison: 01/26/2017 Technique: Axial CT images of the head was performed without contrast. PQRS Compliance Statement: One or more of the following individualized dose reduction techniques were utilized for this examination: 1. Automated exposure control 2. Adjustment of the mA and/or kV according to patient size 3. Use of iterative reconstruction technique . Findings: Examination limited due to significant motion artifact. Grossly there is no evidence of midline shift. Moderate bilateral periventricular white matter hypodensities likely chronic small vessel ischemic disease. Encephalomalacia identified in the right frontal lobe similar to prior exam. Age-related cerebral atrophic changes. Right frontal craniotomy changes. There is no acute intracranial bleed or extra-axial fluid collection identified on this examination however examination limited due to significant motion artifact. 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 The right orbital globe is unchanged with hypodense area of calcification within. Impression: 1. No acute intracranial findings. Limited examination due to significant motion. DICTATED and SIGNED BY: TIMO ALBA MD DATE: 05/22/17 7144 Course & Med Decision Making Course & Med Decision Making Patient has negative head CT and normal urine and normal blood sugar. We gave her a liter of fluids however unfortunately we were unable to get any blood on her on multiple attempts. I told her to get blood for count need to do A. femoral vein stick. refused as he verbalizes understanding that she is end-stage Alzheimer's. He said that he wants her to go back. He admits the patient is back at her baseline and there is no change from her neurologic baseline and otherwise she has no weakness increased confusion and she is not lethargic anymore. I told him to have her follow with her primary care provider and the hospice nurse. aware and agreeable with plan. Dragon Disclaimer Dragon Disclaimer This electronic medical record was generated, in whole or in part, using a voice recognition dictation system. Departure Departure Impression: Primary Impression: Altered mental status Disposition: 01 HOME, SELF-CARE Condition: STABLE Referrals: CRYSTAL PRITCHARD MD (PCP) Problem Qualifiers Primary Impression: Altered mental status Altered mental status type: disorientation Qualified Codes: R41.0 - Disorientation, unspecified SKYLA LUNA DO May 22, 2017 11:10
[2017-05-22] MEDS ORDERED: IV NORMAL SALINE 1000ML BAG 1,000 ML IV ONE (11:15)
--- NOTE | 2017-05-22 11:18 | RAD ---
Examination: CT head without contrast History: History of left-sided facial droop, code stroke. Comparison: 01/26/2017 Technique: Axial CT images of the head was performed without contrast. PQRS Compliance Statement: One or more of the following individualized dose reduction techniques were utilized for this examination: 1. Automated exposure control 2. Adjustment of the mA and/or kV according to patient size 3. Use of iterative reconstruction technique . Findings: Examination limited due to significant motion artifact. Grossly there is no evidence of midline shift. Moderate bilateral periventricular white matter hypodensities likely chronic small vessel ischemic disease. Encephalomalacia identified in the right frontal lobe similar to prior exam. Age-related cerebral atrophic changes. Right frontal craniotomy changes. There is no acute intracranial bleed or extra-axial fluid collection identified on this examination however examination limited due to significant motion artifact. 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 The right orbital globe is unchanged with hypodense area of calcification within. Impression: 1. No acute intracranial findings. Limited examination due to significant motion.
[2017-05-22 11:44] LABS: BILIRUBIN,URINE NEGATIVE (NEG); GLUCOSE,URINE NEGATIVE (NEG); NITRITE,URINE NEGATIVE (NEG); PROTEIN,URINE NEGATIVE (NEG-TRACE)
--- NOTE | 2017-05-22 11:46 | RAD ---
Examination: Single frontal view of the chest History: History of altered mental status. Comparison: 01/26/2017 Findings: The cardiomediastinal silhouette appears prominent probably due to patient rotation. There is no acute infiltrate or visualized pneumothorax identified. Lucency identified in the left upper lateral lung likely secondary to skin fold. Moderate aortic atherosclerosis. A right humerus prosthesis identified. Hardware identified in the left humerus. Impression: No acute cardiopulmonary findings.
[2017-05-22 11:53] LABS: BACTERIA,URINE MODERATE /HPF (0-FEW); RBC,URINE 0 /HPF (0-2)
--- NOTE | 2017-05-22 12:34 | EKG ---
[facility] [address] [place] [address] Test Date: 2017-05-22 Test Time: 11:03:27 Pat Name: YIFAN DOMINIQUE Department: Room: Gender: F Scalder: : 1940 Requested By: SKYLA LUNA Order Number: [id number] Reading MD: Measurements Intervals [place] Rate: 101 P: -3 DC: 140 QRS: -16 QRSD: 118 T: 1 QT: 324 QTc: 421 Interpretive Statements SINUS TACHYCARDIA VENTRICULAR PREMATURE COMPLEX(ES) LEFTWARD AXIS INCOMPLETE RIGHT BUNDLE BRANCH BLOCK QRS(T) CONTOUR ABNORMALITY CONSIDER ANTEROLATERAL INFARCT NON SPECIFIC ST DEPRESSION RI6.01 Unconfirmed report No previous ECG available for comparison
[2017-05-22 13:43] VITALS: BP 169/94
== END 2017-05-22 13:56 | disposition home or self-care (01) ==
LOC: ER 10:49
DX: R41.82 Altered mental status, unspecified (principal); R41.0 Disorientation, unspecified; R53.83 Other fatigue; M19.90 Unspecified osteoarthritis, unspecified site; G30.9 Alzheimer's disease, unspecified; F02.80 Dementia in other diseases classified elsewhere, unspecified severity, without behavioral disturbance, psychotic disturbance, mood disturbance, and anxiety; F32.9 Major depressive disorder, single episode, unspecified; K21.9 Gastro-esophageal reflux disease without esophagitis; I10 Essential (primary) hypertension; Z90.49 Acquired absence of other specified parts of digestive tract; Z90.710 Acquired absence of both cervix and uterus; Z86.73 Personal history of transient ischemic attack (TIA), and cerebral infarction without residual deficits
CPT/HCPCS: 51701; 70450; 71010; 81001; 82962; 87086; 93005; 99285; C1887; J7030; P9612